=== PATIENT | female | born 1985 | race Caucasian/White ===

== ENCOUNTER → 2023-02-25 22:52 | Emergency (ER) | payer MEDICAID, SELFPAY ==
[2023-02-25 19:30] VITALS: BP 148/89; PULSE 99; RESP 20; TEMP 36.4; O2SAT 100
--- NOTE | 2023-02-25 19:36 | W.ED.GENAD ---
Discharge Plan Disposition Patient Disposition: Admit to [facility] Condition: Serious Discharge Details Clinical Impression: Decreased movement Primary Care Provider: Jacinda,[facility] ED Provider: Christina Fleming Medical Decision Making Patient presents to the emergency department for evaluation of decreased to no movement most of the day today. She states she is 41 weeks has had no care. Recently moved here from [place]. Case is discussed with initially Dr. Meza from OB and then the corrections nurse report and care of patient is transition to the OB unit for further evaluation HPI General Mode of arrival: wheelchair. Date/Time Provider Initiated Documentation: 02/25/23 19:31. Limitations to Documentation: no limitations. Information obtained by: patient. HPI Narrative: This is a 12, 2 living, 41 weeks , denies abdominal pain vaginal discharge. States she has not had any care. States that she has noted all day long to have decreased to no movement. Case is discussed with Dr. Meza from OB and patient will be transported up to the birthing center for further evaluation. Review of Systems All systems reviewed & are unremarkable except as noted in HPI and below PFSH All Active Problems (Updated 02/25/23 @ 19:41 by Christina Fleming, ALEJANDRO) Decreased movement (Acute) Social History Smoking risk assessment performed?: No
[2023-02-25 21:08] LABS: HCT 39.4 % (36.0-46.0); HGB 13.2 g/dL (11.2-15.7); MCH 28.7 pg (27.0-33.0); MCHC 33.5 % (32.0-36.0); MCV 86 fL (80-95); MPV 12.9 fL (8.0-11.0); Platelet Count 140 10^3/uL (130-400); RDW 15.9 % (11.7-14.6); RDW-SD 48.9 fL; WBC 10.19 10^3/uL (4.4-10.8)
[2023-02-25 21:38] VITALS: BP 111/74; PULSE 81
[2023-02-25 21:40] VITALS: PULSE 95
--- NOTE | 2023-02-25 21:44 | W.PM.PROGNOT ---
Date of Service Date of service: 02/25/23 Time of Service: 21:44 Assessment and Plan Assessment and plan (1) : Status: Acute Assessment and plan: A: 37 yo , 40+2 wks by pt's ovulation report No records available, pt states care in [place] [facility] on arrival, resolved by discharge, NST reactive, not in labor, intact membranes POCUS reveals cephalic presentation DAVID, anterior placenta, PHUC 17.4 Pt states she is treating herself herbally for UTI P: Pt declines vaginal exam, GBS screen and Utox screen Pt consents to all other labs to be drawn & urine culture Pt intends to deliver at home, given [facility] and Amanda cards/numbers I encouraged her to consider check ups @ [facility], Given BC tour prior to leaving the unit I will call her with any abnormal lab results (2) Elderly multigravida in third trimester: Status: Acute Assessment and plan: No information available on genetic screening (3) Decreased movement: Status: Acute Assessment and plan: NST reactive Subjective Subjective Interval history since last seen: Pt here for wellness check, reports decreased movement today, is 40 wks , recently relocated to [facility] from [place] with her and family. She is originally from [place] and has been living abroad for 16 yrs, for 10. She reports 2 previous vaginal full term uncomplicated deliveries at home, and has had 4 visits with 2 ultrasounds prior to moving back to the . She intends to deliver at home attended by her . She has not made contact with any local home midwives yet, nor was she aware of the state Medicaid program. Overall she is feeling well, denies bleeding or ROM. Ankles get puffy and uncomfortable but this is positional. Hips are achy, pelvic pressure causes difficulty walking sometimes. She states she is worried if her baby is OK and requests NST as well as POCUS for PHUC and position. She agrees to having lab work done but does not consent to internal examination, induction of labor, or any ongoing plan to receive further maternity care at [facility] for now, though they will consider this option. Exam Narrative Exam Narrative: Normal abdominal exam for full term Size=dates Vital signs are WNL Const General: cooperative, healthy appearing, comfortable, no acute distress, well developed and well groomed Nutritional Appearance: average body habitus and well nourished Orientation: alert, awake and oriented x3 Resp Effort & Inspection: normal respiratory effort and able to speak in complete sentences Cardio Rate: regular rate Rhythm: regular rhythm GI Inspection: normal to inspection Palpation: soft General: deferred (pt declines vaginal exam) Skin General skin exam: no rashes or lesions noted Extrem General: normal to inspection, full ROM and normal gait Psych Appearance: grossly normal and well kempt Mental Status: mental status grossly normal Speech and Movement: speech and movement normal and speech clear Attitude: cooperative Thought Process: normal Thought Content: normal Judgment: judgment good Objective Last Vital Signs Pulse 95 H 02/25/23 21:40 BP 111/74 02/25/23 21:38 Laboratory Results - last 24 hr 02/25/23 02/25/23 19:50 20:56 WBC 10.19 RBC 4.60 Hgb 13.2 Hct 39.4 MCV 86 MCH 28.7 MCHC 33.5 RDW 15.9 H Plt Count 140 MPV 12.9 H Ur Buprenorphine Cancelled Ur Norbuprenorphine Cancelled WW Pocus Exam Exam testing Date/Time of Exam: Date of exam: 02/25/2023 Time of exam: 10:30 pm JUAN Calculator Estimated Delivery Date Method Current WG Current Estimate 02/23/23 LMP (Certain) 40w 2d position Gestational age (weeks): 40 Presentation: Vertex Other Findings: DAVID Other Comments: PHUC 17.4 Time Spent with Patient Time Spent with Patient: >50 minutes Time was spent: preparing to see the patient(eg.review tests), obtaining and/or reviewing separately otained hiistory, ordering medications,tests, procedures, referring, communicating with other health behavioral health care manager, indepentently interpreting results and counseling the patient
[2023-02-25 21:53] VITALS: BP 111/74; PULSE 81; RESP 16; TEMP 36.6; O2SAT 98
[2023-02-25 22:30] LABS: Glucose 97 mg/dL (74-106)
--- NOTE | 2023-02-25 22:31 | W.OBNST ---
Date of service: 02/25/23 Time of Service: 22:31 NST Evaluation Reason for NST Reasons for Nonstress Test: DECREASED MOVEMENT Gestational Age Gestational Age in Weeks and Days: 41 Weeks and 0Days Test and Monitor Explained Test/Monitor Explained: Test Explained, Monitor Explained and Patient Verbalized Understanding Vital Signs Blood Pressure: 111/74 Pulse: 81 Temperature: 97.8 F NST Information Date on Monitor: 02/25/23 Time on Monitor: 19:40 Date off Monitor: 02/25/23 Time off Monitor: 20:41 Total Time on Monitor: 61 NST Interventions: PO Hydration and Meal Given NST Evaluation Patient States Movement: Present FHR Baseline: 120 Variability: Moderate 6-25 bpm Accelerations: 15x15 Decelerations: None NST Results: Reactive Note Ultrasound Done: PHUC (DFM, AMA) Total PHUC: 17.4 Other Pertinent Findings: Heart Rate (131), Presentation (cephalic) and Placental Location (anterior) Coding for PHUC w/NST: Completed Exam and Presentation Coding for Presentation w/NST: Completed Exam. NST Note Note: labs drawn Pt declines IOL, vaginal exam, Utox and GBS screen Encouraged pt to call Tuesday to make a check up appt Given Amanda information to access Medicaid coverage Given tour of center Pt states she plans to deliver at home as she has twice before NST Reviewed and Verified by: Reva Monique
[2023-02-25 22:35] VITALS: BP 111/74; PULSE 81; TEMP 36.6
[2023-02-25 22:39] LABS: Bilirubin Negative (Negative); Blood Negative (Negative); Clarity Clear (Clear); Glucose Negative (Negative); Ketones Negative (Negative); Leukocyte Esterase Small (Negative); Nitrite Negative (Negative); Urobilinogen 0.2 mg/dL (Up to 0.2); pH 6.5 (5-8)
[2023-02-25 22:42] LABS: Bacteria Few HPF (Negative); C & S Indicated? C&S Done As Ordered; Casts Negative LPF (Negative); Crystals Negative HPF (Negative); Epithelial Cells Few HPF (Negative); Mucus Negative (Negative); RBC 0-2 HPF (0-2)
[2023-02-27 12:26] LABS: Chlamydia Result Negative (Negative); GC Result Negative (Negative)
[2023-02-28 10:44] LABS: Hepatitis B Surface Ag Negative (Negative)
[2023-02-28 11:09] LABS: Hepatitis C Ab w Rflx HCV PCR Negative (Negative)
[2023-02-28 11:11] LABS: Varicella IgG Antibody Positive (See Note)
[2023-02-28 11:33] LABS: Rubella IgG Ab (UVM) Positive (See Note)
[2023-02-28 13:17] LABS: HIV-1/2 Ag & Ab Screen Negative (Negative)
[2023-03-01 23:41] LABS: Syphilis IgG w/Reflex Nonreactive (Nonreactive)
== END | disposition other institution (70) ==
LOC: ER 19:41 → BCD 19:43 → OBS 19:44 → BCD 22:53 → OBS 22:53
PROVIDERS: Advanced Practice Midwife; Emergency Provider Nurse Practitioner Acute Care; Visit Provider Nurse Practitioner Acute Care
DX: O36.8190 Decreased fetal movements, unspecified trimester, not applicable or unspecified; O09.523 Supervision of elderly multigravida, third trimester; Z3A.41 41 weeks gestation of pregnancy
CPT/HCPCS: 36415; 80348; 82947; 85027; 86787; 86803; 86850; 86900; 86901; 87340; 87389; 87491; 87591; 99283; 59025; 81003; 81015; 83036; 86762; 86780; 87086; 99282

== ENCOUNTER 2023-03-03 11:16 | Outpatient (CLI) | payer MEDICAID, SELFPAY ==
[2023-03-03 11:23] VITALS: BP 107/69; PULSE 76; TEMP 37
[2023-03-03 11:45] VITALS: BP 107/69; PULSE 76
--- NOTE | 2023-03-03 12:11 | PDOC.NST_ITS ---
Date of service: 03/03/23 Time of Service: 12:11 NST Evaluation Reason for NST Reasons for Nonstress Test: POSTDATES Gestational Age Gestational Age in Weeks and Days: 41 Weeks and 1Days Test and Monitor Explained Test/Monitor Explained: Test Explained, Monitor Explained and Patient Verbalized Understanding Vital Signs Blood Pressure: 107/69 Pulse: 76 Temperature: 98.6 F NST Information Time on Monitor: 11:25 Date off Monitor: 03/03/23 Time off Monitor: 11:49 NST Interventions: PO Hydration Contraction Frequency: 9 minutes apart NST Evaluation Patient States Movement: Present FHR Baseline: 125 Variability: Moderate 6-25 bpm Accelerations: 15x15 Decelerations: None NST Results: Reactive Note Ultrasound Done: N/A (not by this provider, PHUC done by Dr. Gurrola, see separate note). NST Note Note: Enedina presents for NST and PHUC due to post dates. She is new to this area having moved from [place] at [facility] 37 weeks gestation. She came to [facility] last week for NST due to decreased movement. At that time she had been planning an unassisted at home as she had 2 home births in [place], one where software build engineer arrived at baby's head crowned and second was unattended. She feel she would prefer induction here as there have not been signs of labor. NST is reactive and reassuring today. She is able to come tomorrow for induction or Tuesday of next week which would be at 41w5d. We booked her here for 9/29 am. I reviewed methods of IOL such as misoprostol and pitocin and risks and benefits. She agrees to either method. I will communicate with OB Physicians technical solutions engineer about this plan of care as well. BRIDGET NST Reviewed and Verified by: Velvet Cabral
[2023-03-03 12:16] VITALS: BP 107/69; PULSE 76; TEMP 37
--- NOTE | 2023-03-03 13:39 | W.OBNST ---
Date of service: 03/03/23 Time of Service: 11:30 NST Evaluation Reason for NST Reasons for Nonstress Test: POSTDATES Gestational Age Gestational Age in Weeks and Days: 41 Weeks and 1Days Test and Monitor Explained Test/Monitor Explained: Test Explained, Monitor Explained and Patient Verbalized Understanding Vital Signs Blood Pressure: 107/69 Pulse: 76 Temperature: 98.6 F NST Information Date on Monitor: 03/03/23 Time on Monitor: 11:25 Date off Monitor: 03/03/23 Time off Monitor: 11:49 Total Time on Monitor: 24 NST Interventions: PO Hydration Contraction Frequency: 9 minutes apart NST Evaluation Patient States Movement: Present FHR Baseline: 125 Variability: Moderate 6-25 bpm Accelerations: 15x15 Decelerations: None NST Results: Reactive Note Ultrasound Done: PHUC Indication: Other (postdates) Total PHUC: 20.8 Other Pertinent Findings: Presentation (vertex) Coding for PHUC w/NST: Completed Exam. NST Note NST Reviewed and Verified by: Zhanna Gurrola
[2023-03-03 13:40] VITALS: BP 107/69; PULSE 76; TEMP 37
== END 2023-03-03 12:08 | disposition home or self-care (01) ==
LOC: BCD 11:18 → OBS 11:22
PROVIDERS: Visit Provider Advanced Practice Midwife
DX: O48.0 Post-term pregnancy (principal); Z3A.41 41 weeks gestation of pregnancy
CPT/HCPCS: 59025

== ENCOUNTER 2023-03-06 17:05 | Inpatient (IN) | payer MEDICAID, SELFPAY ==
[2023-03-06 17:23] VITALS: TEMP 36.8
[2023-03-06 17:27] LABS: HCT 40.9 % (36.0-46.0); HGB 13.5 g/dL (11.2-15.7); MCH 28.4 pg (27.0-33.0); MCV 86 fL (80-95); MPV 12.6 fL (8.0-11.0); Platelet Count 140 10^3/uL (130-400); RBC 4.75 10^6/uL (3.93-5.22); RDW 16.3 % (11.7-14.6); RDW-SD 50.9 fL; WBC 8.91 10^3/uL (4.4-10.8)
[2023-03-06 18:04] VITALS: BP 114/72; PULSE 84; TEMP 36.8
--- NOTE | 2023-03-06 18:31 | HPE_ITS ---
Date of service: 03/06/23 Time of Service: 18:32 Assessment and Plan Assessment and plan (1) Encounter for induction of labor: Status: Acute Assessment and plan: 1. Enedina sought our care for induction of labor currently at [id number] by LMP/ovulation 2. We have reviewed risks and benefits to induction as well as alternatives such as expectant management. She and her , Chuy, prefer to move forward with induction tonight. 3. We have discussed methods of induction and cervical ripening such as misoprostol, pitocin, ren balloon. She prefers to start with misoprostol and observe for progress. Will give 50 mcg Misoprostol and reassess in 4 hours or as indicated. 4. We talked about IV access, she prefer to wait to have IV placed if it is needed. Agrees to urgent placement. 5. Declines COVID testing today. She reports she is unable to wear a mask due while in labor but has been feeling well. She is aware that people can have COVID and be asymptomatic but does not want testing. 6. She is GBS unknown (unknown for last 2 deliveries as well) prefers to avoid testing, reports she considers herself PCN allergic as her Father had anaphyaxis from PCN and she has had it on her allergy list since then. 7. OB physician part time receptionist notified of patient status and plan of care, physician agrees to plan. (2) Transfusion of blood product declined due to restorationist reason: Status: Acute Assessment and plan: 1. I have reviewed active management of second/third stage of labor. She agrees to IM, PO or IV medications as needed, will not accept blood products for restorationist reasons. Agrees to IV access if needed. BRIDGET (3) Bilateral edema of lower extremity: Status: Acute Assessment and plan: 1.Enedina reports her lower legs are often edematous, on her feet most of the day. Has not had pre-eclampsia in past and she has normal BP and labs although PLT 140 which is stable from a week ago. 2. Negative for hyper reflexes or clonus, denies FARIAS, visual disturbance or epigastric pain.BRIDGET OB-HPI Labor/Delivery History of Present Illness Reason for Visit: Post Term Chief Complaint: Scheduled Induction of Labor Indication for Induction: Post Date. JUAN Calculator Estimated Delivery Date Method Current WG Current Estimate 02/23/23 LMP (Certain) 41w 4d Comments: Enedina and her , Chuy, present for induction of labor. She has been having some contractions today but is prepared to move forward with . They moved here from [place] recently. Has had some care. She did agrees to labs minus GBS testing when she presented a week ago for NST due to decreased movement. Her dating is estimated by ovulation dating. She has not had glucola testing done. Prior to this they delivered 2 healthy children at home while living in [place]. Enedina and Chuy have a plan which is copied for the chart. She prefers minimal intervention. Agrees to IV access if there is indication and active management of any PP bleeding with medications and massage of uterus. She declines blood products based on restorationist preference. They are hoping for skin to skin and delayed cord clamping but understand that health of baby at delivery could interrupt that. Ultimately the safe and healthy delivery is their preference. She and I had talked about induction agents at her last NST and she agrees to begin with misoprostol PO and reassess as indicated. Risks, benefits and alternatives are discussed. Enedina has declined COVID screening. She is feeling well and Chuy is also well. KH History of Present Expected Delivery Route/Plan Chuy Oneal ( third child together) BB- Albert No circ Specific Issues/Plan 1. Late entry to care at 32 weeks in [place] 2. Kidney infection 01/2023, treated by holistic doctor and treated with herbs 3. AMA Informed Consent Informed Consent: Induction of Labor and Risk,Benefits,Alternatives Discussed (patient agrees to Misoprostol or pitocin as indicated. BRIDGET) Review of Systems All systems reviewed & are unremarkable except as noted in HPI and below Genitourinary Comments: lost mucous plug a few days ago PFS All Active Problems (Updated 03/06/23 @ 18:45 by Velvet Cabral CNM) Encounter for induction of labor (Acute) Post term , 41 weeks (Acute) Bilateral edema of lower extremity (Acute) Transfusion of blood product declined due to restorationist reason (Acute) Celiac disease (Acute) (Acute) Elderly multigravida in third trimester (Acute) Decreased movement (Acute) Social History Smoking/Tobacco Use Status: Never Smoking risk assessment performed?: Yes Alcohol Intake: former Substance use type: does not use Housing: apartment History History 12 Para 2 Hx # Term Pregnancies 2 Multiple births Hx # Pregnancies Ectopic pregnancies 0 AB induced Hx Number of Living Children 2 AB spontaneous 9 Past Pregnancies Del. Date GA/Weeks # Preg Succ Route Wgt Sex Labor Lgth Anesth esia Location Prov Complic 01/17/15 vaginal Female 22 09/30/19 40 Yes Female 1.5 hours Delivery Date: 01/17/15 Last Updated by: Velvet Quintanilla CNM Rebeca Delivery Date: 09/30/19 Last Updated by: Velvet Quintanilla CNM Delivered at home due to covid and home or center births not offered. - attended. Radha Meds Allergies and Home Medications Allergies Allergy/AdvReac Type Severity Reaction Status Date / Time aspirin Allergy Verified 03/06/23 18:42 Penicillins Allergy Verified 03/06/23 18:42 Home Medications Medication Instructions Recorded Confirmed Type vitamin no.102-iron 90 1 cap PO DAILY 03/03/23 03/06/23 History mg-folate 1 mg-dha 200 mg capsule Exam Physical Exam Vital signs: Temp 98.2 F 03/06/23 17:23 Narrative: BP 114/72 P 94 Detailed Labor and Delivery Exam Dilation: 1 Effacement (%): 50 station: -3 Position: AARON Cervix position: posterior Consistency: soft Collado Score: Cervical Points Exam 0 1 2 3 Dilation Closed 1-2cm 3-4 cm 5-6cm Effacement 0-30% 40-50% 60-70% 80% Consistency Firm Medium Soft Station -3 -2 -1,0 +1,+2 Position Posterior Mid Anterior COLLADO Score(Cervical Ripeness Score): 4 Amniotic Membrane Status: Intact Monitor Mode: Palpation Contraction Frequency(min): irregular Contraction Duration(sec): irregular Contraction Intensity: Mild Fetus A Assessment Note: Initial NST is reactive and reassuring. KH HEENT Exam HEENT Exam: Normal Neck Exam Neck Exam: Normal Chest/Brest/Axilla Exam Chest Exam: Normal Breast Exam Breast Exam: Not Done Respiratory Exam Respiratory Exam: Normal Cardiovascular Exam Cardiovascular Exam: Normal Abdominal Exam Abdominal Exam: Normal (Size equals dates) Rectal Exam Rectal Exam: Not Done Exam Exam: Normal Extremities Exam Extremities Exam: Abnormal (1-2+ edema of lower legs bilaterally, she reports it is common for her, neg hyper-reflexia) Back/Spine/Pelvis Exam Back Exam: Not Done Pelvis Adequate: Yes Skin Exam Skin Exam: Normal Neurological Exam Neurological Exam: Normal (denies FARIAS, visual changes or epigastric pain) Psychiatric Exam Psychiatric Exam: Normal Results Results Group Beta Strep: Not Done (patient declines) Blood Type: AB+ Lab Results: 03/06/23 Hgb 13.5 Hct 40.9, Plt 140. 9/ random glucose 97, A1c5.0, no 1 hour glucose was done due to scant care, Syphillis NR, GC CT negative, Hep Bneg, Hep C neg, HIV neg, Rubella immune, Varicella immune. Declined GBS testing, no CF/SMA or cfDNA or AFP testing done, POCUS exam 02/25/23 Cephalic presentation,PHUC 17.4, anterior placenta per Reva Monique CNM Abnormal Lab Findings: Abnormal Labs 03/06/23 17:18 RDW 16.3 H MPV 12.6 H Risk Assessment Risk for Shoulder Dystocia Historical/Initial OB: NEGATIVE FOR: Pelvic Abnormality, Pre- BMI>30, Previous Shoulder Dystocia or Previous Macrosomia 36 Weeks: NEGATIVE FOR: Current Gestational DM, EFW>4500gms or Maternal Weight Gain>40lbs 40 Weeks: POSTIVE FOR: Post Dates Delivery Plan @ 40 wks: induction of labor at 41w 4d, increased risk due to post dates and IOL. EFW by erica [id number] Risk for Pre-Eclampsia Date Initiated/Initials: 03/03/23 Yes, if one or more: NEGATIVE FOR: Hx Pre-E/Gest HTN, Chronic HTN, Multiple Gestation, Pre-gestational DM, Renal Disease, Systemic Lupus or APA Syndrome Yes, if 2 or more: POSITIVE FOR: Age>= 35 yrs; NEGATIVE FOR: Nulliparity, >10yr btwn pregnancies, BMI>30, ethinicty, Mother/Sister w/ Pre-E or Previous IUGR Risk for Post- Hemorrhage 36 Weeks: NEGATIVE FOR: Anemia, hgb<10, Low platelets(thrombocytopenia), Gestational HTN or Pre-E, Polyhydraminios or EFW>4500gms 40 Weeks: NEGATIVE FOR: Anemia, hgb<10, Low platelets (thrombocytopenia), Gestation HTN or Pre-E, Polyhydraminios or EFW>4500gms Counseled re: Active Management: Yes Date/Initials: 03/06/23 KH Risks Reviewed Risks Reviewed Upon Admission: Yes (some increased risk for SD and PPH noted)
[2023-03-06] MEDS: miSOPROStol 25 MCG TAB 50 MCG PO (18:55)
[2023-03-07] VITALS (9 sets, daily range): BP systolic 109–120; BP diastolic 55–77; PULSE 74–95; RESP 16; TEMP 37; O2SAT 97
--- NOTE | 2023-03-07 07:57 | W.PM.OBNL1 ---
Date of service: 03/07/23 Time of Service: 07:35 Informed Consent Informed Consent: Induction of Labor and Risk,Benefits,Alternatives Discussed (patient agrees to Misoprostol or pitocin as indicated. ) Pelvic Exam Dilation: 4 Effacement (%): 80 station: -2 Cervix Position: mid Consistency: soft Contractions Monitor Mode: Palpation Contraction Frequency(min): 2-4 Contraction Duration(sec): 45-60 Intensity: Moderate Fetus A Monitor: Doppler Heart Rate Baseline: 138 Amniotic Membrane Status: Intact Assessment and Plan Assessment and plan (1) Encounter for induction of labor: Status: Acute Assessment and plan: 1. Enedina has had one dose of 50 mcg of misoprostol and has started to have regular contractions this morning with good cervical changes. 2. Reviewed option of augmenting with Pitocin IV or expectant management for a couple of hours with reassessment. Enedina prefer expectant management at this time. 3. OB physician updated on patient status. Objective Abnormal lab results 03/06/23 Range/Units 17:18 RDW 16.3 H (11.7-14.6) % MPV 12.6 H (8.0-11.0) fL Temp Pulse BP 98.2 F 74 120/67 03/06/23 17:23 03/07/23 05:33 03/07/23 05:33 Laboratory Results WBC 8.91 10^3/uL (4.4-10.8) 03/06/23 17:18 RBC 4.75 10^6/uL (3.93-5.22) 03/06/23 17:18 Hgb 13.5 g/dL (11.2-15.7) 03/06/23 17:18 Hct 40.9 % (36.0-46.0) 03/06/23 17:18 MCV 86 fL (80-95) 03/06/23 17:18 MCH 28.4 pg (27.0-33.0) 03/06/23 17:18 MCHC 33.0 % (32.0-36.0) 03/06/23 17:18 RDW 16.3 % (11.7-14.6) H 03/06/23 17:18 Plt Count 140 10^3/uL (130-400) 03/06/23 17:18 MPV 12.6 fL (8.0-11.0) H 03/06/23 17:18 COVID-19 Source Cancelled 03/06/23 17:07 SARS-CoV-2 (PCR) Cancelled 03/06/23 17:07 Patient ABO/Rh AB Positive 03/06/23 17:18 Antibody Screen NEGATIVE 03/06/23 17:18 Vital Signs Reviewed: Yes Subjective Interval history since last seen: Enedina has had some sleep and then at 0545 woke with more uncomfortable contractions. Has had some bloody show. Baby has been active. Interventions Pain Management Interventions: Comfort Measures , Ambulation and Birthing Ball. Results Hemoglobin/Hematocrit: Hgb 13.5 g/dL (11.2-15.7) 03/06/23 17:18 Hct 40.9 % (36.0-46.0) 03/06/23 17:18 Abnormal Lab Findings: Abnormal Labs 03/06/23 17:18 RDW 16.3 H MPV 12.6 H
--- NOTE | 2023-03-07 08:35 | HPE_ITS ---
Date of service: 03/07/23 Time of Service: 08:35 OB-HPI Labor/Delivery History of Present Illness Reason for Visit: Post Term Chief Complaint: Scheduled Induction of Labor Indication for Induction: Post Date. JUAN Calculator Estimated Delivery Date Method Current WG Current Estimate 02/23/23 LMP (Certain) 41w 5d Comments: purpose of this is to update obstetric history only. KH History of Present Expected Delivery Route/Plan Chuy Oneal ( third child together) CHRISTIE [place] circ Specific Issues/Plan 1. Late entry to care at 32 weeks in [place] 2. Kidney infection 01/2023, treated by holistic doctor and treated with herbs 3. AMA PFSH All Active Problems (Updated 03/06/23 @ 18:45 by Velvet Cabral CNM) Encounter for induction of labor (Acute) Post term , 41 weeks (Acute) Bilateral edema of lower extremity (Acute) Transfusion of blood product declined due to anabaptist reason (Acute) Celiac disease (Acute) (Acute) Elderly multigravida in third trimester (Acute) Decreased movement (Acute) Social History Smoking/Tobacco Use Status: Never Smoking risk assessment performed?: Yes Alcohol Intake: former Substance use type: does not use Housing: apartment History History 12 Para 2 Hx # Term Pregnancies 2 Multiple births Hx # Pregnancies Ectopic pregnancies 0 AB induced Hx Number of Living Children 2 AB spontaneous 9 Past Pregnancies Del. Date GA/Weeks # Preg Succ Route Wgt Sex Labor Lgth Anesth esia Location Prov [facility] 01/17/15 43 No Yes vaginal 7 lb 3 oz Female 22 03/25/16 18 No No vaginal 08/11/16 4 03/09/17 4 No No 03/06/18 4 No No 07/07/18 4 09/03/18 09/30/19 40 No Yes vaginal 7 lb 12 oz Female 1.5 hours 06/06/20 6 No No 09/16/21 10 No No 03/06/22 8 No No Delivery Date: 01/17/15 Last Updated by: Velvet Cabral CNM Rebec[place], home Delivery Date: 03/25/16 Last Updated by: Velvet Cabral CNM delivered at home unattended Delivery Date: 08/11/16 Last Updated by: Velvet Cabral CNM early SAB, uncertain of date. no complications Delivery Date: 03/09/17 Last Updated by: Velvet Cabarl CNM SAB, uncertain of dates, no complications Delivery Date: 03/06/18 Last Updated by: LEXA Perez uncomplicated Delivery Date: 07/07/18 Last Updated by: Velvet Cabral CNM Uncertain of date, SAB uncomplicated Delivery Date: 09/03/18 Last Updated by: LEXA Perez uncomplicated Delivery Date: 09/30/19 Last Updated by: Velvet Quintanilla CNM Delivered at home due to covid and home or center births not offered. - attended. Radha Delivery Date: 06/06/20 Last Updated by: LEXA Perez uncomplicated Delivery Date: 09/16/21 Last Updated by: LEXA Perez uncomplicated Delivery Date: 03/06/22 Last Updated by: LEXA Perez uncomplicated Meds Allergies and Home Medications Allergies Allergy/AdvReac Type Severity Reaction Status Date / Time aspirin Allergy Verified 03/06/23 18:42 Penicillins Allergy Verified 03/06/23 18:42 Home Medications Medication Instructions Recorded Confirmed Type vitamin no.102-iron 90 1 cap PO DAILY 03/03/23 03/06/23 History mg-folate 1 mg-dha 200 mg capsule Exam Physical Exam Vital signs: Temp Pulse BP 98.2 F 74 120/67 03/06/23 17:23 03/07/23 05:33 03/07/23 05:33 Detailed Labor and Delivery Exam Naranjo Score: Cervical Points Exam 0 1 2 3 Dilation Closed 1-2cm 3-4 cm 5-6cm Effacement 0-30% 40-50% 60-70% 80% Consistency Firm Medium Soft Station -3 -2 -1,0 +1,+2 Position Posterior Mid Anterior Results Results Group Beta Strep: Not Done Blood Type: AB+ Rubella Status: Immune Varicella Immunity: Immune Abnormal Lab Findings: Abnormal Labs 03/06/23 17:18 RDW 16.3 H MPV 12.6 H Risk Assessment Risk for Shoulder Dystocia Historical/Initial OB: NEGATIVE FOR: Pelvic Abnormality, Pre- BMI>30, Previous Shoulder Dystocia or Previous Macrosomia 36 Weeks: NEGATIVE FOR: Current Gestational DM, EFW>4500gms or Maternal Weight Gain>40lbs 40 Weeks: POSTIVE FOR: Post Dates Delivery Plan @ 40 wks: induction of labor at 41w 4d, increased risk due to post dates and IOL. EFW by erica [id number] Risk for Pre-Eclampsia Date Initiated/Initials: 03/03/23 Yes, if one or more: NEGATIVE FOR: Hx Pre-E/Gest HTN, Chronic HTN, Multiple Gestation, Pre-gestational DM, Renal Disease, Systemic Lupus or APA Syndrome Yes, if 2 or more: POSITIVE FOR: Age>= 35 yrs; NEGATIVE FOR: Nulliparity, >10yr btwn pregnancies, BMI>30, ethinicty, Mother/Sister w/ Pre-E or Previous IUGR Risk for Post- Hemorrhage 36 Weeks: NEGATIVE FOR: Anemia, hgb<10, Low platelets(thrombocytopenia), Gestational HTN or Pre-E, Polyhydraminios or EFW>4500gms 40 Weeks: NEGATIVE FOR: Anemia, hgb<10, Low platelets (thrombocytopenia), Gestation HTN or Pre-E, Polyhydraminios or EFW>4500gms Counseled re: Active Management: Yes Date/Initials: 03/06/23 BRIDGET Risks Reviewed Risks Reviewed Upon Admission: Yes
[2023-03-07] MEDS: Oxytocin 10 UNITS/ML VIAL IM (13:40)
--- NOTE | 2023-03-07 13:43 | OBVDS_ITS ---
Date of service: 03/07/23 Time of Service: 13:43 OB Labor/ Delivery Information Baby A Delivery Note: Eendina presented with her , Chuy, for induction of labor for post term at 41w 4d. She had a single dose of Misoprostol 50 mcg PO and, with expectant management, she progressed slowly over the night of 03/06 into 03/07. In the morning of 03/07 VE was 4cm and FHR tracing and doppler were all WNL. She labored more actively after that and at 1230 began to have regular involuntary urges to push. She entered the tup a little before that time. Second stage huddle was done and it was agreed that would be as quiet as possible and pitocin would be given IM after placenta delivered. Chuy entered the tub as well to receive his baby with Customer Success Manager at side of tub prepared to assist. Enedina gently pushed and had SROM at 1245. The baby was born and brought to Mother's abdomen by Chuy at 1252. They remained in the tub, hoping to deliver the placenta in same fashion. Their desire was to allow that placenta to remain attached to baby for a period of time after delivery. Baby apgars were 9 and 9. Placenta delivered with maternal pushing effort at 1323 and appears intact. Enedina moved to the bed and her fundus was firm, U-1 with massage. We admi nistered 10 units of Pitocin IM. Perineum inspected and there is an abrasion at introitus that is hemostatic and left unrepaired. Bi-manual massage to verify that lower uterine segment was firm and that there was no clots or placental fragments palpable in cervix. No free flow noted. QBL is challenged by being in tub for and placenta but estimated at 300cc. They do not want circumcision for their son. Enedina and Chuy plan to breast feed their son. Expect 24 hour PP stay. Mother and baby are in satisfactory condition. Cord blood not obtained due to placenta remaining attached to baby and per parents desire to avoid testing. Expect normal PP course. Providers Doctor: Velvet Cabral Gal[place] Hand: Robin Ronquillo Nurse: Marilee Almeida Other: Ofe Hines Labor/Delivery Information Number of Babies in Womb: 1 Steroids Given: None Reason Steroids Not Administered: N/A Group Beta Strep: Not Done Antibiotics Administered: No Rubella Status: Immune Blood Type: AB+ Varicella Immunity: Immune Maternal Complications: None Shoulder Dystocia: No Stages of Labor Onset of Labor Date: 03/06/23 Onset of Labor Time: 10:00 Complete Dilatation Date: 03/07/23 Complete Dilatation Time: 12:30 Labor - Stage 1 Duration: 26 hours and 30 minutes ROM Baby A: 03/07/23 ROM Baby A: 12:45 ROM Total Time- Baby A: [id number] Infant Delivery Date-Baby A: 03/07/23 Infant Delivery Time-Baby A: 12:52 Labor Stage 2 Duration: 22 minutes Placenta Delivery Date-Baby A: 03/07/23 Placenta Delivery Time-Baby A: 13:23 Labor-Stage 3 Duration: 31 minutes Total Length of Labor-Baby A: 26 hours and 52 minutes Placenta Cultured: No Placenta Status: Delivered Baby A Infant Gender: Male Gestational Status: Term (39-41.6 wks) Gestational Age in Weeks/Days: 41 Weeks and 5 Days Score-1 Minute Interval(Baby A) Heart Rate-1 minute: 100 BPM or Greater Respiratory Effort- 1 minute: Spontaneous/Strong Cry Muscle Tone-1 minute: Active Movement Reflex Response-1 minute: Prompt Response Color-1 minute: Bluish Hands or Feet Total Score-1 minute: 9 Score-5 Minute Interval(Baby A) Heart Rate- 5 minute: 100 BPM or Greater Respiratory Effort-5 minute: Spontaneous/Strong Cry Muscle Tone-5 minute: Active Movement Reflex Response-5 minute: Prompt Response Color-5 minute: Bluish Hands or Feet Total Score- 5 minute: 9
--- NOTE | 2023-03-07 19:58 | DSE_ITS ---
Date of service: 03/07/23 Time of Service: 19:58 DS: Diagnosis Discharge Diagnosis (1) care following vaginal delivery: Status: Acute Asessment and Plan: 1. Patient prefers discharge to home this evening, <24 hours after delivery but > 6 hours PP 2. Stable PP condition, experienced parents, experienced breast feeding Mother 3. PP course has been uneventful to date 4. Will encourage follow up in 2 weeks and 6 weeks at [facility] or prn 5. Natural Family Planning for contraception. Discharge Plan Disposition Patient Disposition: Home Condition: Good Discharge Details Reason For Visit: Post Term Admit Date/Time: 03/06/23 17:05 Admit Provider: Velvet Cabral Attending Provider: Velvet Cabral Hospital Course Hospital Course: Induction of labor for post 41 week with a single dose of misoprostol 50 mcg PO resulting in labor and of live male. Desired discharge 7-8 hours PP. In stable condition. Experienced breast feeding Mother. Home Meds and New Rx's Prescriptions: Continued PNV 335-ecaf-lgasnh-dha 90 mg iron- 1 mg-200 mg capsule 1 cap PO DAILY Discharge Instructions Instructions: Depression (GEN) Stand Alone Forms: Instructions, Post Vaginal Deliver Activity:: Activity as Tolerated Equipment/Supplies:: No Equipment Needed Diet:: As Tolerated Discharge Orders Discharge Orders: Discharge Order (Routine); Ordered 03/07/23 Ordered By: Velvet Cabral OB:DS Summary Summary Vaginal Delivery Method: Spontaneaous Episiotomy Description: None Laceration Description: None Laceration Extension: N/A Contraception Discussed Contraception Discussed: Yes (NFP), [place] Infant Gender-Baby A: Male weight: 9 lb 8.913 oz Status at Discharge Functional status at discharge: independent ambulation Overall status at discharge: patient is back to baseline Mental Status: mental status grossly normal Speech and Movement: speech and movement normal Mood: congruent mood Affect: normal affect Time Spent with Patient providing and/or coordinating discharge services: Less than 30 minutes Exam Physical Exam Vital signs: Temp Pulse Resp BP Pulse Ox 98.6 F 95 H 16 109/56 L 97 03/07/23 14:19 03/07/23 15:10 03/07/23 14:19 03/07/23 15:10 03/07/23 14:19 Vital Signs Reviewed: Yes Constitutional Constitutional: no acute distress, average body habitus and cooperative HEENT Exam HEENT Exam: Normal Neck Exam Neck Exam: Normal (normal visual inspection) Respiratory Exam Respiratory Exam: Normal Cardiovascular Exam Cardiovascular Exam: Normal Abdominal Exam Abdomen: Other (normal exam) Fundal Exam Fundus: Below Umbilicus and Firm Comment: small lochia noted. KH Rectal Exam Rectal Exam: Not Done Exam Perineum: Intact and Normal Extremities Exam Extremity Exam: Normal (denies calf tenderness), Edema, Full ROM, Normal Capillary Refill and Warm to Touch Back/Spine/Pelvis Exam Back Exam: Normal Skin Exam Skin Exam: Normal Neurological Exam Neurological Exam: Normal Psychiatric Exam Psychiatric Exam: Normal PFSH All Active Problems care following vaginal delivery (Acute) Encounter for induction of labor (Acute) Post term , 41 weeks (Acute) Bilateral edema of lower extremity (Acute) Transfusion of blood product declined due to quaker reason (Acute) Celiac disease (Acute) (Acute) Elderly multigravida in third trimester (Acute) Decreased movement (Acute) Social History Smoking/Tobacco Use Status: Never Smoking risk assessment performed?: Yes Alcohol Intake: former Substance use type: does not use Housing: apartment History History 12 Para 2 Hx # Term Pregnancies 2 Multiple births Hx # Pregnancies Ectopic pregnancies 0 AB induced Hx Number of Living Children 2 AB spontaneous 9 Past Pregnancies Del. Date GA/Weeks # Preg Succ Route Wgt Sex Labor Lgth Anesth esia Location Prov Complic 01/17/15 43 No Yes vaginal 7 lb 3 oz Female 22 03/25/16 18 No No vaginal 08/11/16 4 03/09/17 4 No No 03/06/18 4 No No 07/07/18 4 09/03/18 09/30/19 40 No Yes vaginal 7 lb 12 oz Female 1.5 hours 06/06/20 6 No No 09/16/21 10 No No 03/06/22 8 No No Delivery Date: 01/17/15 Last Updated by: Velvet Cabral CNM [place]bec[place], [place] Delivery Date: 03/25/16 Last Updated by: Velvet Cabral CNM delivered at home unattended Delivery Date: 08/11/16 Last Updated by: Velvet Cabral CNM early SAB, uncertain of date. no complications Delivery Date: 03/09/17 Last Updated by: Velvet Cabral CNM SAB, uncertain of dates, no complications Delivery Date: 03/06/18 Last Updated by: Velvet Cabral CNM SAB uncomplicated Delivery Date: 07/07/18 Last Updated by: Velvet Cabral CNM Uncertain of date, SAB uncomplicated Delivery Date: 09/03/18 Last Updated by: Velvet Cabral CNM SAB uncomplicated Delivery Date: 09/30/19 Last Updated by: Velvet Quintanilla CNM Delivered at home due to covid and home or center births not offered. - attended. Radha Delivery Date: 06/06/20 Last Updated by: Velvet Cabral CNM SAB uncomplicated Delivery Date: 09/16/21 Last Updated by: Velvet Cabral CNM SAB uncomplicated Delivery Date: 03/06/22 Last Updated by: Velvet Cabral CNM SAB uncomplicated DS: Data Vitals/I&O Vitals and I&O: Vital Signs Temperature 98.6 F 03/07/23 14:19 Temperature 98.2 F 03/06/23 18:04 Temperature Source Oral 03/07/23 14:19 Pulse 95 H 03/07/23 15:10 Pulse 84 03/06/23 18:04 Pulse Rhythm Regular 03/07/23 09:53 Respiratory Rate 16 03/07/23 14:19 Blood Pressure 109/56 L 03/07/23 15:10 Blood Pressure 114/72 03/06/23 18:04 Pulse Oximetry 97 03/07/23 14:19 Oxygen Delivery Method Room Air 03/06/23 17:23 Oxygen Flow Rate 0 03/06/23 17:23 Pain Level 3 03/06/23 17:23 Comment Pt declined Vital Signs at this time. 03/06/23 19:40 Intake & Output 03/06/23 03/07/23 03/07/23 23:59 11:59 23:59 Intake Total 240 / 240 Output Total 150 / 150 175 / 175 Balance -150 / -150 65 / 65 Weight 190 lb Intake: Oral 240 / 240 Output: Urine 150 / 150 175 / 175 Other: Urine Color Light Raquel
== END 2023-03-07 21:20 | disposition home or self-care (01) | DRG 807 ==
LOC: OBS 17:17
PROVIDERS: Admitting Provider Advanced Practice Midwife; Visit Provider Advanced Practice Midwife
DX: O48.0 Post-term pregnancy (principal); Z37.0 Single live birth; O12.04 Gestational edema, complicating childbirth; Z3A.41 41 weeks gestation of pregnancy; K90.0 Celiac disease; O99.62 Diseases of the digestive system complicating childbirth
CPT/HCPCS: 85027; 86850; 86900; 86901; 87635; 59025; J2590; J3490

== ENCOUNTER 2024-01-25 06:15 | Emergency (ER) | payer MEDICAID, SELFPAY ==
[2024-01-25 06:20] VITALS: BP 126/75; PULSE 88; RESP 20; TEMP 37.2; O2SAT 99
[2024-01-25 06:26] VITALS: RESP 18
--- NOTE | 2024-01-25 06:45 | RT.EKG_ITS ---
APPROVED REPORT Exam: Resting ECG Reason for Exam: chest pain Patient Location: E HR:71 bpm ECG Measurements Heart Rate 71 AXIS WA 150 P 14 QRSd 93 QRS 15 QT 407 T 23 QTc 443 Conclusion Sinus rhythm...normal P axis, V-rate 60- 99 ST elev, probable normal early repol pattern...ST elevation, age<55 Physician: no stemi, inverted t wave in III, no q wave, no braod terminal s wave in lead I
--- NOTE | 2024-01-25 07:09 | ED.GENADUL_ITS ---
Discharge Plan Disposition Patient Disposition: Home Condition: Good Discharge Details Chief Complaint: Vascular Clinical Impression: Superficial thrombophlebitis Primary Care Provider: Unknown,Unknown ED Provider: Robin Calderon Home Meds and New Rx's Prescriptions: No Action cyanocobalamin (vitamin B-12) 1,000 mcg capsule 2,000 mcg PO DAILY PNV [id number] 90 mg iron- 1 mg-200 mg capsule 1 cap PO DAILY Discharge Instructions Instructions: Phlebitis (DC) Additional Instructions: At this time you have evidence of a superficial blood clot. It is not at a stage that requires antibiotics or anticoagulants currently. Please use your compression stockings, please apply warm compresses throughout the day to help it resolve. You will require repeat ultrasonography for further testing. Additionally I have placed a referral with our obstetrics software development leader for further outpatient testing and management. They will also help manage and coordinate your current as needed. As we discussed together you have elected to hold off on any imaging or anticoagulation. There is a small but present risk that there could be a clot in your lung, which does carry inherent negative potential. If your symptoms change in any way, or worsen in any way, please do not hesitate to return for reassessment so that we can continue to try to make the best decision for you that aligns with your goals, and health and wellness. If you notice any worsening of your symptoms, or any new symptoms such as vomiting, diarrhea, fever, chills, shortness of breath, chest pain, numbness, weakness, or fainting , please return immediately to the emergency department for reevaluation. Please follow up with your primary care provider as soon as possible for reassessment and reevaluation. As always, it was a pleasure participating in your medical care today. Referrals: Zhanna Gurrola MD [ [facility] STAFF PHYSICIAN] - Kitty Meza DO [OSTEOPATHIC DOCTOR] - Robyn Mahajan MD [ [facility] STAFF PHYSICIAN] - [facility] General Date/Time Provider Initiated Documentation: 01/25/24 06:35 . [facility] Narrative: This is a 38-year-old female with past medical history of multiple pregnancies who is a currently at this time at around 10 weeks, who presents today with right lower leg pain for the last 48 hours. In addition to this she admits to slight mild chest discomfort which she describes as a mild congestion like sensation. No significant pleuritic chest pain. She denies any cough, fever, chills or hemoptysis. Patient has had superficial thrombophlebitis in the past, but has never required anticoagulant use. She has had multiple miscarriages but she states she has not been tested for MTHFR. She denies any recent long trips surgeries or procedures. No other complaints at th is time. No other modifying factors. Related Data Home Medications ?Medication ?Instructions ?Recorded ?Confirmed vitamin no.102-iron 90 1 cap PO DAILY 03/03/23 01/25/24 mg-folate 1 mg-dha 200 mg capsule cyanocobalamin (vitamin B-12) 2,000 mcg PO DAILY 04/19/23 01/25/24 1,000 mcg capsule Allergies Allergy/AdvReac Type Severity Reaction Status Date / Time aspirin Allergy shortness Verified 01/25/24 06:33 of breath Penicillins Allergy rash Verified 01/25/24 06:33 General Stated Complaint: Vascular CLARISSA: 3 Review of Systems All systems reviewed & are unremarkable except as noted in HPI and below Exam Narrative Exam Narrative: 1.Const: Well-nourished, Well-developed, appearing stated age 2.Eyes: PERRL, no conjunctival injection, and symmetrical lids. 3.ENT: Atraumatic external nose and ears. Moist MM. Neck: Symmetric, trachea midline, No thyromegaly. 4.CVS: +S1/S2, No murmurs or gallops. Peripheral pulses 2+ and equal in all extremities. Brisk capillary refill in all extremities. 5.RESP: Unlabored respiratory effort. Clear to auscultation bilaterally. No wheezes rales or rhonchi 6.GI: Soft, Nontender/Nondistended, No hepatosplenomegaly. No guarding or rebound. 7.MSK: Normocephalic/Atraumatic, Extremities w/o deformity. No cyanosis or clubbing, Normal movement of all extremities. Patient demonstrates evidence of erythema in the right calf, minimal swelling there. Trace pitting edema of the right lower extremity. 8.Skin: Warm, Dry. No rashes or lesions. 9.Neuro: slitting machine operator II-XII grossly intact. Sensation grossly intact, no focal neurologic deficits. 10.Psych: (AAO) x3. Appropriate mood and affect Course Vital Signs Vital signs: Vital Signs Temperature 37.2 C 01/25/24 06:20 Pulse 88 01/25/24 06:20 Respiratory Rate 20 01/25/24 06:20 Blood Pressure 126/75 01/25/24 06:20 Pulse Oximetry 99 01/25/24 06:20 Temperature 37.2 C 01/25/24 06:20 Temperature Source Skin 01/25/24 06:20 Pulse 88 01/25/24 06:20 Respiratory Rate 18 01/25/24 06:26 Respiratory Effort Normal, Non-Labored 01/25/24 06:26 Respiratory Depth Normal 01/25/24 06:26 Respiratory Pattern Normal 01/25/24 06:26 Blood Pressure 126/75 01/25/24 06:20 Pulse Oximetry 99 01/25/24 06:20 Oxygen Delivery Method Room Air 01/25/24 06:20 Oxygen Flow Rate 0 01/25/24 06:20 Pain Level 2 01/25/24 06:26 Medical Decision Making This is a 38-year-old female with past medical history of multiple pregnancies who is a currently at this time at around 10 weeks, who presents today with right lower leg pain for the last 48 hours. In addition to this she admits to slight mild chest discomfort which she describes as a mild congestion like sensation. No significant pleuritic chest pain. She denies any cough, fever, chills or hemoptysis. Patient has had superficial t hrombophlebitis in the past, but has never required anticoagulant use. She has had multiple miscarriages but she states she has not been tested for MTHFR. She denies any recent long trips surgeries or procedures. No other complaints at this time. No other modifying factors. Patient has been wearing compression stockings for her right lower calf. Physical exam demonstrates well-appearing female, she has no tachycardia, hypotension, fever or hypoxemia. Differential is highest for superficial thrombophlebitis, less likely DVT. However with the patient's atypical chest sensation, PE is on the differential albeit less likely. I had a long discussion with the patient regarding potential diagnoses and symptoms. She states very clearly that she does not want any radiation for the baby/fetus at this time. We will get blood work to evaluate for hemoglobin and platelet and coagulopathy status. We will get a D-dimer to evaluate likelihood of potential significant clot considering her stage in . We will get formal ultrasound of the right lower extremity. Patient will be signed out to my colleague Dr. Toya Bello for follow-up on ultrasonography. 8:38 AM Ultrasound shows evidence of a superficial DVT. No indication for anticoagulation in regards to that. Will recommend continue compression stockings, warm compresses, repeat ultrasound in the next 2 to 4 weeks, and close follow-up with obstetrics. We have placed her on the referral list. Blood work shows stable hemoglobin, normal renal function. Patient's D-dimer is elevated at 1697. This is above the cutoff for this stage of . I had a very long discussion with the patient regarding her symptoms. She states the chest pain is absolutely minimal, and feels more like mild congestion. She is currently in the organogenesis stage of her , and we discussed the risks and benefits of ionizing radiation, we also discussed the likelihood ratios of a potential PE with her symptoms, her lack of tachycardia hypotension or concerning EKG findings. We discussed benefits of anticoagulation presumptively, as well as the risks. And after a very long discussion weighing all the risks and benefits including the best case scenarios as well as worst- case scenarios of life or compromise, patient has elected to hold off on any radiographic imaging at this time. Additionally for the time being she would like to hold off on any anticoagulation as well. I did discuss very clearly with her that if this scenario changes, or her symptoms change that we can pivot and transition to potential anticoagulants or imaging, however this does come with the risk of delayed assessment and potential harm. Patient and family understand this. Because of the patient's more complex medical nature, her multiple miscarriages, I do feel that she is at high risk for potential coagulopathy, or potential MTHFR. Because of this I have requested that a referral to the obstetrics software development leader be placed for further testing and management. Additionally the patient will require repeat ultrasonography in the next few weeks to make sure the blood clot is not transitioning. We will give her compression stockings from use. Discussed red flags for which to return. I have extensively reviewed the treatment plan and discharge instructions with the patient. I have addressed all patient concerns at this time. The patient was made aware of what symptoms to monitor for that would warrant a return to the emergency department. Discussed the plan with the patient, they demonstrate verbal understanding and agreement with our assessment and plan at this time. The documentation in this chart was dictated using [employer] dictation software. Please excuse any dictation errors. Quality:SDOH Health Related Social Needs: No Data to Display PFSH All Active Problems (Updated 01/25/24 @ 08:44 by Robin Calderon DO) Superficial thrombophlebitis (Acute) Pelvic floor dysfunction in female (Acute) care following vaginal delivery (Acute) Post term , 41 weeks (Acute) Bilateral edema of lower extremity (Acute) Transfusion of blood product declined due to judaism reason (Acute) Celiac disease (Acute) (Acute) Elderly multigravida in third trimester (Acute) Social History Smoking/Tobacco Use Status: Never Smoking risk assessment performed?: Yes Alcohol Intake: former Substance use type: does not use Housing: apartment History History 12 Para 3 Hx # Term Pregnancies 3 Multiple births Hx # Pregnancies Ectopic pregnancies 0 AB induced Hx Number of Living Children 3 AB spontaneous 9 Past Pregnancies Del. Date GA/Weeks # Preg Succ Route Wgt Sex Labor Lgth Anesth esia Location Prov Complic 01/17/15 43 No Yes vaginal 3260.195 g Female 22 03/25/16 18 No No vaginal 08/11/16 4 03/09/17 4 No No 03/06/18 4 No No 07/07/18 4 09/03/18 09/30/19 40 No Yes vaginal 3515.341 g Female 1.5 hours 06/06/20 6 No No 09/16/21 10 No No 03/06/22 8 No No 03/07/23 41 No Yes vaginal 4334.642 g Male 26hrs 52min LEXA Nolasco Delivery Date: 01/17/15 Last Updated by: Velvet Cabral CNM Rebeca, home Delivery Date: 03/25/16 Last Updated by: Velvet Cabral CNM delivered at home unattended Delivery Date: 08/11/16 Last Updated by: Velvet Cabral CNM early SAB, uncertain of date. no complications Delivery Date: 03/09/17 Last Updated by: Velvet Cabral CNM SAB, uncertain of dates, no complications Delivery Date: 03/06/18 Last Updated by: Velvet Cabral CNM SAB uncomplicated Delivery Date: 07/07/18 Last Updated by: Velvet Cabral CNM Uncertain of date, SAB uncomplicated Delivery Date: 09/03/18 Last Updated by: Velvet Cabral CNM SAB uncomplicated Delivery Date: 09/30/19 Last Updated by: Velvet Quintanilla CNM Delivered at home due to covid and home or center births not offered. - attended. Radha Delivery Date: 06/06/20 Last Updated by: Velvet Cabral CNM SAB uncomplicated Delivery Date: 09/16/21 Last Updated by: Velvet Cabral CNM SAB uncomplicated Delivery Date: 03/06/22 Last Updated by: Velvet Cabral CNM SAB uncomplicated Delivery Date: 03/07/23 Last Updated by: Kitty Harris LPN Induced-post dates; established care into practice at 41 +
[2024-01-25 07:34] LABS: Abs Immature Grans 0.04 10^3/uL (0.0-0.06); Absolute Basophil Count 0.03 10^3/uL (0.0-0.2); Absolute Eosinophil Count 0.23 10^3/uL (0.0-0.7); Absolute Lymphocyte Count 1.92 10^3/uL (1.2-3.4); Absolute Monocyte Count 0.79 10^3/uL (0.1-0.8); Absolute Neutrophil Count 4.62 10^3/uL (1.2-6.7); Basophils % 0.4 %; HCT 43.6 % (36.0-46.0); HGB 14.8 g/dL (11.2-15.7); Immature Grans % 0.5 %; Lymphocytes % 25.2 %; MCHC 33.9 % (32.0-36.0); MCV 88 fL (80-95); MPV 11.6 fL (8.0-11.0); Monocytes % 10.4 %; Neutrophils % 60.5 %; Platelet Count 147 10^3/uL (130-400); RBC 4.94 10^6/uL (3.93-5.22); RDW 13.4 % (11.7-14.6); RDW-SD 43.2 fL; WBC 7.63 10^3/uL (4.4-10.8)
[2024-01-25 07:42] LABS: ALT 16 U/L (14-59); AST 11 U/L (15-37); Albumin 3.1 g/dL (3.4-5.0); Alkaline Phosphatase 43 U/L (46-116); Anion Gap 7.7 mmol/L (3-11); BUN 11 mg/dL (7-18); Bilirubin, Total 0.74 mg/dL (0.2-1.0); CO2 23.3 mmol/L (21.0-32.0); CREATININE 0.5 mg/dL (0.55-1.02); Chloride 107 mmol/L (98-107); Estimated GFR 121.52 (mL/min/1.73m2); Glucose 86 mg/dL (74-106); PTT Activated 25.8 sec (23.6-32.8); Potassium 3.8 mmol/L (3.5-5.1); Prothrombin Time 9.6 sec (9.1-11.1); Sodium 138 mmol/L (136-145); Total Protein 6.6 g/dL (6.4-8.2)
--- NOTE | 2024-01-25 08:00 | DI.US_ITS ---
Exam(s) US LOWER EXTREMITY VENOUS RT EXAM: US LOWER EXTREMITY VENOUS RT CLINICAL HISTORY: right calf pain, eval for clot. TECHNIQUE: Lower extremity venous ultrasound performed using grayscale, color-flow, and spectral Do ppler analysis. COMPARISON: No exams were available for comparison FINDINGS: The common femoral, femoral and popliteal veins demonstrate normal compressibility, augmentation, and color Doppler. The posterior tibial veins are patent. There is thrombus within a superficial vein i n the posterior calf. No hematoma or Almeida's cyst is seen. IMPRESSION: Superficial venous thrombosis in the posterior calf. No evidence of DVT. DATA REPOSITORY:
[2024-01-25 08:06] LABS: D-Dimer 1697 ng/mlFEU (<500)
[2024-01-25 09:04] VITALS: BP 112/62; PULSE 84; RESP 12; O2SAT 97
--- NOTE | 2024-01-25 14:49 | NUR.NOTE ---
Referral faxed to [facility] for , blood clot, needs further coagulation testing; in 1 week. Nursing Note:
== END 2024-01-25 09:06 | disposition home or self-care (01) ==
PROVIDERS: Emergency Provider Student in an Organized Health Care Education/Training Program
DX: R07.9 Chest pain, unspecified (principal); R06.02 Shortness of breath; I80.01 Phlebitis and thrombophlebitis of superficial vessels of right lower extremity; O22.21 Superficial thrombophlebitis in pregnancy, first trimester
CPT/HCPCS: 36415; 80053; 93005; 99283; 85025; 85379; 85610; 85730; 93010; 93971

== ENCOUNTER 2024-02-08 02:39 | Outpatient (CLI) | payer MEDICAID, SELFPAY ==
[2024-02-08 12:58] LABS: Abs Immature Grans 0.04 10^3/uL (0.0-0.06); Absolute Basophil Count 0.04 10^3/uL (0.0-0.2); Absolute Eosinophil Count 0.38 10^3/uL (0.0-0.7); Absolute Lymphocyte Count 2.08 10^3/uL (1.2-3.4); Absolute Monocyte Count 0.67 10^3/uL (0.1-0.8); Absolute Neutrophil Count 5.26 10^3/uL (1.2-6.7); Basophils % 0.5 %; Eosinophils % 4.5 %; HGB 15.1 g/dL (11.2-15.7); Immature Grans % 0.5 %; Lymphocytes % 24.6 %; MCH 29.9 pg (27.0-33.0); MCHC 34.3 % (32.0-36.0); MCV 87 fL (80-95); Monocytes % 7.9 %; Platelet Count 196 10^3/uL (130-400); RBC 5.05 10^6/uL (3.93-5.22); RDW 13.4 % (11.7-14.6); RDW-SD 42.8 fL; WBC 8.47 10^3/uL (4.4-10.8)
[2024-02-08 13:06] LABS: Hemoglobin A1C 4.9 % (<5.7)
[2024-02-08 13:41] LABS: ALT 18 U/L (14-59); AST 14 U/L (15-37); Albumin 3.2 g/dL (3.4-5.0); Alkaline Phosphatase 42 U/L (46-116); Anion Gap 8.9 mmol/L (3-11); BUN 13 mg/dL (7-18); CO2 25.1 mmol/L (21.0-32.0); CREATININE 0.6 mg/dL (0.55-1.02); Calcium 9.4 mg/dL (8.5-10.1); Chloride 103 mmol/L (98-107); Glucose 85 mg/dL (74-106); Magnesium 1.8 mg/dL (1.8-2.4); Potassium 3.7 mmol/L (3.5-5.1); Sodium 137 mmol/L (136-145); TSH (W/Ref FT4) < 0.01 uIU/mL (0.36-3.74)
[2024-02-08 14:31] LABS: FREE T4 1.44 ng/dL (0.76-1.46)
[2024-02-08 23:28] LABS: Parathyroid Hormone,Intact 15 pg/mL (19-88)
[2024-02-09 08:41] LABS: Hepatitis B Surface Ag Negative (Negative)
[2024-02-09 09:28] LABS: Hepatitis C Ab w Rflx HCV PCR Negative (Negative)
[2024-02-09 10:48] LABS: Factor 5 Assay 131 % (62-139)
[2024-02-09 11:28] LABS: Varicella IgG Antibody Positive (See Note)
[2024-02-09 11:32] LABS: Rubella IgG Ab (UVM) Positive (See Note)
[2024-02-10 12:13] LABS: HIV-1/2 Ag & Ab Screen Negative (Negative)
[2024-02-10 17:12] LABS: Syphilis IgG w/Reflex Nonreactive (Nonreactive)
[2024-02-14 13:47] LABS: 1,25-Dihydroxyvitamin D 106 pg/mL (18-78)
== END 2024-02-08 02:40 | disposition home or self-care (01) ==
LOC: LBO 02:39
PROVIDERS: Obstetrics & Gynecology; Visit Provider Advanced Practice Midwife
DX: Z34.91 Encounter for supervision of normal pregnancy, unspecified, first trimester (principal); Z86.39 Personal history of other endocrine, nutritional and metabolic disease; R79.89 Other specified abnormal findings of blood chemistry
CPT/HCPCS: 36415; 80053; 86787; 86803; 86850; 86900; 86901; 87340; 87389; 82310; 82652; 83036; 83735; 83970; 84439; 84443; 85025; 86762; 86780; 87086

== ENCOUNTER 2024-02-08 12:08 | Outpatient (REF) | payer MEDICAID, SELFPAY ==
[2024-02-09 12:25] LABS: Chlamydia Result Negative (Negative); GC Result Negative (Negative)
== END 2024-02-08 12:09 | disposition home or self-care (01) ==
LOC: LBN 12:08
PROVIDERS: Visit Provider Advanced Practice Midwife
DX: Z34.91 Encounter for supervision of normal pregnancy, unspecified, first trimester (principal); Z3A.11 11 weeks gestation of pregnancy
CPT/HCPCS: 87491; 87591; 87086

== ENCOUNTER 2024-08-17 16:00 | Outpatient (CLI) | payer MEDICAID, SELFPAY ==
[2024-08-17 16:06] VITALS: BP 116/78; PULSE 88; TEMP 36.4
[2024-08-17 16:08] VITALS: BP 116/78; PULSE 88
[2024-08-17 17:16] VITALS: BP 116/78; PULSE 88; TEMP 36.4
--- NOTE | 2024-08-17 17:16 | W.OBNST ---
Date of service: 08/17/24 Time of Service: 17:16 NST Evaluation Reason for NST Reasons for Nonstress Test: OTHER, SEE COMMENT Reason for NST Other: FHR check Gestational Age Gestational Age in Weeks and Days: 38 Weeks and 3Days Test and Monitor Explained Test/Monitor Explained: Test Explained, Monitor Explained and Patient Verbalized Understanding Vital Signs Blood Pressure: 116/78 Pulse: 88 Temperature: 97.5 F Urine Results Urine Protein: Negative Urine Ketones: Negative Urine Glucose: Negative Urine Blood: Negative NST Information Date on Monitor: 08/17/24 Time on Monitor: 15:03 Date off Monitor: 08/17/24 Time off Monitor: 16:37 Total Time on Monitor: 94 NST Interventions: PO Hydration NST Evaluation Patient States Movement: Present FHR Baseline: 115 Variability: Moderate 6-25 bpm Accelerations: 15x15 Decelerations: None NST Results: Reactive Note Ultrasound Done: N/A. NST Note NST Reviewed and Verified by: Reva Monique
== END 2024-08-17 16:42 ==
LOC: BCD 16:01 → OBS 16:02
PROVIDERS: Visit Provider Advanced Practice Midwife
DX: O36.8330 Maternal care for abnormalities of the fetal heart rate or rhythm, third trimester, not applicable or unspecified (principal); Z3A.38 38 weeks gestation of pregnancy
CPT/HCPCS: 59025

== ENCOUNTER 2024-08-20 00:48 | Outpatient (CLI) | payer MEDICAID, SELFPAY ==
--- NOTE | 2024-08-20 07:00 | DI.US_ITS ---
Exam(s) US OB PHUC WEIGHT EXAM: US OB PHUC WEIGHT CLINICAL HISTORY: EFW,PHUC,Z34.90. TECHNIQUE: Transabdominal obstetrical ultrasound performed. COMPARISON: US POCUS EXAM from 01/30/2024 FINDINGS:: Number of fetuses: 1 position: TRANS LT Placental location: FUNDAL No evidence of previa. BIOMETRIC DATA: BPD: 9.2cm, 37weeks 3days HC: 34.44cm, 39weeks 6days AC: 35.18cm, 39weeks 1day FL: 7.32cm, 37weeks 3days EFW: 3,537.86g, 7lb 13.1oz, 59.3% Composite Age: 38weeks 3days JUAN: 08/31/2024 Heart Rate: 142bpm Amniotic fluid index: 10.39cm. Visually, amount of fluid is within normal limits. IMPRESSION: size and weight are within the expected range. DATA REPOSITORY:
== END 2024-08-20 01:08 ==
LOC: DI 00:48
PROVIDERS: Visit Provider Advanced Practice Midwife
DX: Z34.93 Encounter for supervision of normal pregnancy, unspecified, third trimester (principal); Z3A.39 39 weeks gestation of pregnancy
CPT/HCPCS: 76816

== ENCOUNTER 2024-08-24 21:39 | Inpatient (IN) | payer MEDICAID, SELFPAY ==
[2024-08-24 20:10] VITALS: BP 118/73; PULSE 84; PULSE 93; TEMP 36.2
[2024-08-24 20:20] VITALS: BP 118/73; PULSE 68; RESP 16; TEMP 36.2; O2SAT 97
[2024-08-24 20:24] VITALS: BP 118/73; PULSE 68; TEMP 36.2
[2024-08-24 21:24] VITALS: BP 118/73; PULSE 68; TEMP 36.2
--- NOTE | 2024-08-24 22:52 | HPE_ITS ---
Date of service: 08/24/24 Time of Service: 22:52 Assessment and Plan Assessment and plan (1) Transverse lie: Status: Acute Assessment and plan: Baby was transverse-left; now transverse-right. Subjectively good fluid and good mobility along abdomen. We had an extensive conversation regarding the risks and benefits of external version with subsequent induction of labor vs section. Ms. Oneal would like to avoid surgery if at all possible and opts for external version. We reviewed the risks of version include, but are not limited to, rupture of membranes, placental abruption, cord avulsion, intolerance, uterine rupture, and failure of the procedure resulting in possible . We discussed the possible means of anesthesia for pain control. We discussed spinal vs epidural vs without pain medications. Patient is considering epidural. We discussed the possible use of Terbutaline, but we will trial without it first. We discussed inducing immediately following a chievement of cephalic presentation. All questions were answered to the patient's satisfaction. She was consented for trial of external version, possible section. (2) Advanced maternal age (AMA) in : Status: Acute (3) : Status: Acute Assessment and plan: Presuming cephalic version is successful, Ms. Oneal would like to proceed with induction of labor. She does NOT desire a tubal ligation. She plans to take home her placenta. She would like [id number], immediate , and delayed cord clamping. Her GBS status is unknown; we discussed the importance of antibiotic coverage to reduce the risk of infection and sepsis; Ms. Oneal verbalizes understanding and declines antibiotics at this time (AMA form declining antibiotics signed). (4) Thrombophlebitis during : Status: Acute (5) Low TSH level: Status: Acute (6) Hypermobility syndrome: Status: Acute (7) Blood product declined: Status: Acute Assessment and plan: Patient states that she wishes to decline all blood products even if it results in her . We discussed that birthing a baby is a bloody process especially in the setting of an external version, possible , and risk of pp hemorrhage. Patient vocalized understanding and declines all blood products. Declination signed. OB-HPI Labor/Delivery History of Present Illness Reason for Visit: transverse lie: external version with induction Chief Complaint: Other (transverse lie). JUAN Calculator Estimated Delivery Date Method Current WG Current Estimate 08/27/24 Ultrasound #1 39w 4d Other Estimates 08/18/24 LMP (Certain) 40w 6d Comments: 38 yo at 49 4/7 as dated by 10 wk US presents for scheduled external version with induction for transverse lie. Ms. Oneal had an US performed 08/20 that identified a 3500 gram baby in transverse lie, head to the left. She was lost to follow up until, today. Limited bedside US performed, today, identifies a baby in tranverse lie, head to the right, back inferior (towards maternal feet). An extensive discussion was had in the office regarding section vs attempted cephalic version with induction; she has decided on trialing the cephalic version with induction. History of Present Expected Delivery Route/Plan - CNM - comanagement due to thrombophlebitis FOB- Chuy Oneal - (4th baby together) Specific Issues/Plan 1. Advanced maternal age- offered level 2 US which was declined, serum genetic testing declined. US scheduled at , reordered today 2. Tandem nursing- 3. History of Thrombophlebitis - Recurrence in right leg and ED visit 01/24 -US shows superficial venous thrombus, declined CT scan, repeat US also declined by pt 3a. 30-40 compression maternity hose prescription sent 02/09/24 4. Increased risk of preeclampsia - declines ASA due to allergy. 5. History of macrosomia- early glucose testing recommended and 1-hr GTT declined, Testing QID recommended but pt declines 6. 5-Ps neg 7. Low TSH 0.01, FT4 1.44, repeat in one month____ 8. History of Hypo or hyperparathyroidism- PTH - 15 (L), Ca+ 9.4 (NL), Mag 1.8 (NL), Vit D-NL 9. Declines GBS testing - counselled re: risks 10. Transverse lie at 39 wks, attempting to reach pt for reassessment and options counseling Informed Consent Informed Consent: Augmentation of Labor, Section Delivery, Induction of Labor, Regional Anesthesia, Risk,Benefits,Alternatives Discussed and Other Review of Systems All systems reviewed & are unremarkable except as noted in HPI and below PFSH All Active Problems (Updated 08/24/24 @ 23:20 by Maya Siu DO) Blood product declined (Acute) Hypermobility syndrome (Acute) Thrombophlebitis during (Acute) Transverse lie (Acute) on 39 week ultrasound Low TSH level (Acute) Venous embolism and thrombosis (Acute) superficial right calf High thyroid stimulating hormone (TSH) level (Acute) Advanced maternal age (AMA) in (Acute) (Acute) Pelvic floor dysfunction in female (Acute) Medical History (Updated 08/24/24 @ 23:20 by Maya Siu DO) History of hyperparathyroidism Celiac disease Transfusion of blood product declined due to anabaptist reason Family History (Updated 02/08/24 @ 11:01 by Velvet Quintanilla CNM) Father , age 67 Heart disease ND at age 67 Social History Smoking/Tobacco Use Status: Never Smoking risk assessment performed?: Yes Alcohol Intake: former Substance use type: does not use Housing: apartment History History 13 Para 3 Hx # Term Pregnancies 3 Multiple births 0 Hx # Pregnancies 0 Ectopic pregnancies 0 AB induced 0 Hx Number of Living Children 3 AB spontaneous 9 Past Pregnancies Del. Date GA/Weeks # Preg Succ Route Wgt Sex Labor Lgth Anesth esia Location Prov Complic 01/17/15 43 No Yes vaginal 7 lb 3 oz Female 22 03/25/16 18 No No vaginal 08/11/16 4 03/09/17 4 No No 03/06/18 4 No No 07/07/18 4 09/03/18 09/30/19 40 No Yes vaginal 7 lb 12 oz Female 1.5 hours 06/06/20 6 No No 09/16/21 10 No No 03/06/22 8 No No 03/07/23 41 No Yes vaginal 9 lb 8.9 oz Male 4 hrs Nery mar CNM Delivery Date: 01/17/15 Last Updated by: Velvet Cabral CNM Rebeca, home Delivery Date: 03/25/16 Last Updated by: Velvet Cabral CNM delivered at home unattended Delivery Date: 08/11/16 Last Updated by: Velvet Cabral CNM early SAB, uncertain of date. no complications Delivery Date: 03/09/17 Last Updated by: Velvet L Misha, CNM SAB, uncertain of dates, no complications Delivery Date: 03/06/18 Last Updated by: Velvet Cabral CNM SAB uncomplicated Delivery Date: 07/07/18 Last Updated by: Velvet Cabral CNM Uncertain of date, SAB uncomplicated Delivery Date: 09/03/18 Last Updated by: Velvet Cabral CNM SAB uncomplicated Delivery Date: 09/30/19 Last Updated by: Velvet Quintanilla CNM Delivered at home due to covid and home or center births not offered. - attended. Radha Delivery Date: 06/06/20 Last Updated by: Velvet Cabral CNM SAB uncomplicated Delivery Date: 09/16/21 Last Updated by: Velvet Cabral CNM SAB uncomplicated Delivery Date: 03/06/22 Last Updated by: Velvet Cabral CNM SAB uncomplicated Delivery Date: 03/07/23 Last Updated by: Velvet Quintanilla CNM Induced-post dates; established care into practice at 41 +. Spontaneous labor after one dose Meds Allergies and Home Medications Allergies Allergy/AdvReac Type Severity Reaction Status Date / Time aspirin Allergy shortness Verified 08/24/24 15:52 of breath Penicillins Allergy rash Verified 08/24/24 22:59 Home Medications ?Medication ?Instructions ?Recorded ?Confirmed ?Type vitamin no.102-iron 90 1 cap PO DAILY 03/03/23 08/24/24 History mg-folate 1 mg-dha 200 mg capsule cyanocobalamin (vitamin B-12) 2,000 mcg PO DAILY 04/19/23 08/24/24 History 1,000 mcg capsule Exam Physical Exam Vital signs: Temp Pulse Resp BP Pulse Ox 97.2 F L 68 16 118/73 97 08/24/24 20:20 08/24/24 20:20 08/24/24 20:20 08/24/24 20:20 08/24/24 20:20 Vital Signs Reviewed: Yes Narrative: general: Well nourished female in no immediate distress HEENT: Normocephalic Resp: Unlabored breathing Abdomen: Gravid, soft, non-tender Ext: +2 edema noted equally bilaterally : SVE FT/th/high/midline/soft FHT: Cat 1; reactive and reassuring [place]: Intermittent; patient reports mild sensation Detailed Labor and Delivery Exam Naranjo Score: Cervical Points Exam 0 1 2 3 Dilation Closed 1-2cm 3-4 cm 5-6cm Effacement 0-30% 40-50% 60-70% 80% Consistency Firm Medium Soft Station -3 -2 -1,0 +1,+2 Position Posterior Mid Anterior Fetus A Presentation: Transverse Lie (head to right; back inferior (towards maternal feet)) Est. Weight: 7 lb 11.459 oz Results Results Group Beta Strep: Done-Result Unknown (result pending) Blood Type: AB+ Rubella Status: Immune Varicella Immunity: Immune Lab Results: Syphillis neg, HIV neg, Hep B neg, Hep C neg, gonorrhea neg, Chlamydia neg, GBS unknown Risk Assessment Risk for Shoulder Dystocia Historical/Initial OB: POSITIVE FOR: Previous Macrosomia; NEGATIVE FOR: Pelvic Abnormality, Pre- BMI>30 or Previous Shoulder Dystocia Risk for Pre-Eclampsia Date Initiated/Initials: 02/08/24 Yes, if one or more: NEGATIVE FOR: Hx Pre-E/Gest HTN, Chronic HTN, Multiple Gestation, Pre-gestational DM, Renal Disease, Systemic Lupus or APA Syndrome Yes, if 2 or more: POSITIVE FOR: Age>= 35 yrs; NEGATIVE FOR: Nulliparity, >10yr btwn pregnancies, BMI>30, ethinicty, Mother/Sister w/ Pre-E or Previous IUGR Risk for Post- Hemorrhage Initial: NEGATIVE FOR: Multiple Gestation, Previous PPH, Known Clotting Defici ency, Grand Multiparity or Anticoagulation Risks Reviewed Risks Reviewed Upon Admission: Yes
[2024-08-25] VITALS (113 sets, daily range): BP systolic 109–134; BP diastolic 57–85; PULSE 74–196; RESP 18–20; TEMP 36.4–37.1; O2SAT 92–100; BMI 32.3
[2024-08-25] MEDS: Normal Saline Flush 10 ML SYR IVP (06:47)
[2024-08-25 07:01] LABS: HCT 40.7 % (36.0-46.0); MCH 30.8 pg (27.0-33.0); MCHC 34.4 % (32.0-36.0); MCV 90 fL (80-95); MPV 12.8 fL (8.0-11.0); Platelet Count 134 10^3/uL (130-400); RBC 4.54 10^6/uL (3.93-5.22); RDW 14.2 % (11.7-14.6); RDW-SD 46.5 fL; WBC 7.67 10^3/uL (4.4-10.8)
--- NOTE | 2024-08-25 08:42 | W.PM.PROGNOT ---
Date of Service Date of service: 08/25/24 Time of Service: 08:42 Objective Last Vital Signs Temp 97.5 F L 08/25/24 07:35 Pulse 90 08/25/24 08:41 Resp 18 08/25/24 07:35 BP 121/76 08/25/24 07:35 Pulse Ox 99 08/25/24 08:39 Laboratory Results - last 24 hr 08/25/24 06:41 WBC 7.67 RBC 4.54 Hgb 14.0 Hct 40.7 MCV 90 MCH 30.8 MCHC 34.4 RDW 14.2 Plt Count 134 MPV 12.8 H TSH 0.10 L ABO/Rh AB Positive Antibody Screen NEGATIVE Objective Narrative Objective Narrative: Patient found resting well this morning. We discussed the plan for external version with induction, possible , and she still desires to proceed. Bedside US appreciates continued right transverse lie; back still down towards mom's feet; fundal placenta; adequate fluid. Hgb 14+, Platelets in the 130's. Awaiting surgical staff and anesthesia establishement. Time Spent with Patient Time Spent with Patient: 25-34 minutes Time was spent: preparing to see the patient(eg.review tests), obtaining and/or reviewing separately otained hiistory, ordering medications,tests, procedures, referring, communicating with other health career development coordinator/teacher, counseling the patient and care coordination
--- NOTE | 2024-08-25 08:53 | ANES.PREOP_ITS ---
General Info Date of Service Date Performed: 08/25/24 Height: 5 ft 6 in Weight: 90.718 kg Body Mass Index (BMI): 32.3 Meds Allergies and Home Medications Allergies Allergy/AdvReac Type Severity Reaction Status Date / Time aspirin Allergy shortness Verified 08/24/24 15:52 of breath Penicillins Allergy rash Verified 08/24/24 22:59 Home Medication ?Medication ?Instructions ?Recorded vitamin no.102-iron 90 1 cap PO DAILY 03/03/23 mg-folate 1 mg-dha 200 mg capsule cyanocobalamin (vitamin B-12) 2,000 mcg PO DAILY 04/19/23 1,000 mcg capsule Current Visit Medications: Current Medications Generic Name Dose Route Start Last Admin Trade Name Freq PRN Reason Stop Dose Admin Ringer's Solution 1,000 mls @ 0 mls/hr 08/25/24 17:30 IV INFUSION AGNIESZKA Per Protocol Ringer's Solution 500 mls @ 500 mls/hr 08/25/24 18:00 IV 08/25/24 18:59 BOLUS ONE IV Miscellaneous Supplies 1 each 08/25/24 17:30 Iv Access IV DIRECTED AGNIESZKA Sodium Chloride 0 ml 08/24/24 21:39 08/25/24 06:47 Normal Saline Flush 10 Ml Syr IVP 10 ml PRN PRN Administration Sodium Chloride 0 ml 08/25/24 08:30 Normal Saline Flush 10 Ml Syr IVP BID AGNIESZKA Sodium Chloride 0 ml 08/24/24 21:39 Normal Saline 10 Ml Vial IJ DIRECTED PRN Terbutaline Sulfate 0.25 mg 08/24/24 22:00 Terbutaline 1 Mg/Ml Vial SC DIRECTED AGNIESZKA PFS Active Problems Active Problems: Problem Status Onset Code Blood product declined Acute Z78.9 Hypermobility syndrome Acute M35.7 Thrombophlebitis during Acute O22.20 Transverse lie Acute O32.2XX0 Low TSH level Acute R79.89 Venous embolism and thrombosis Acute I82.90 High thyroid stimulating hormone (TSH) level Acute R79.89 Advanced maternal age (AMA) in Acute Acute Z34.90 Pelvic floor dysfunction in female Acute M62.89 Medical History Medical History (Updated 08/24/24 @ 23:20 by Maya Siu DO) History of hyperparathyroidism Celiac disease Transfusion of blood product declined due to bahai reason Tobacco Smoking/Tobacco Use Status: Never Alcohol Alcohol Intake: former Substance Use Substance use type: does not use Prental History History 2 13 Para 3 Hx # Term Pregnancies 3 Multiple births 0 Hx # Pregnancies 0 Ectopic pregnancies 0 AB induced 0 Hx Number of Living Children 3 AB spontaneous 9 Past Pregnancies Del. Date GA/Weeks # Preg Succ Route Wgt Sex Labor Lgth Anesth esia Location Prov Complic 01/17/15 43 No Yes vaginal 3260.195 g Female 22 03/25/16 18 No No vaginal 08/11/16 4 03/09/17 4 No No 03/06/18 4 No No 07/07/18 4 09/03/18 09/30/19 40 No Yes vaginal 3515.341 g Female 1.5 hours 06/06/20 6 No No 09/16/21 10 No No 03/06/22 8 No No 03/07/23 41 No Yes vaginal 4334.642 g Male 4 hrs Luma carias CNM Delivery Date: 01/17/15 Last Updated by: Velvet Cabral CNM Rebeca, home Delivery Date: 03/25/16 Last Updated by: Velvet Cabral CNM delivered at home unattended Delivery Date: 08/11/16 Last Updated by: Velvet Cabral CNM early SAB, uncertain of date. no complications Delivery Date: 03/09/17 Last Updated by: Velvet Cabral CNM SAB, uncertain of dates, no complications Delivery Date: 03/06/18 Last Updated by: Velvet Cabral CNM SAB uncomplicated Delivery Date: 07/07/18 Last Updated by: Velvet Cabral CNM Uncertain of date, SAB uncomplicated Delivery Date: 09/03/18 Last Updated by: Velvet Cabral CNM SAB uncomplicated Delivery Date: 09/30/19 Last Updated by: Velvet Quintanilla CNM Delivered at home due to covid and home or center births not offered. - attended. Radha Delivery Date: 06/06/20 Last Updated by: Velvet Cabral CNM SAB uncomplicated Delivery Date: 09/16/21 Last Updated by: Velvet Cabral CNM SAB uncomplicated Delivery Date: 03/06/22 Last Updated by: Velvet Cabral CNM SAB uncomplicated Delivery Date: 03/07/23 Last Updated by: Velvet Quintanilla CNM Induced-post dates; established care into practice at 41 +. Spontaneous labor after one dose Vital Signs and Lab Results Vital Signs Most Recent Vital Signs in EMR: Most Recent Vital Signs Temp Pulse Resp BP Pulse Ox 36.4 C L 84 18 110/71 100 08/25/24 07:35 08/25/24 08:50 08/25/24 07:35 08/25/24 08:50 08/25/24 08:49 Lab Results 08/25/24 06:41 Blood Type / Crossmatch: 2 Antibody Screen NEGATIVE 08/25/24 Complete Blood Count: 2 White Blood Count 7.67 10^3/uL (4.4-10.8) 08/25/24 06:41 Red Blood Count 4.54 10^6/uL (3.93-5.22) 08/25/24 06:41 Hemoglobin 14.0 g/dL (11.2-15.7) 08/25/24 06:41 Hematocrit 40.7 % (36.0-46.0) 08/25/24 06:41 Platelet Count 134 10^3/uL (130-400) 08/25/24 06:41 Complete Metabolic Panel: 2 No Data to Display Liver Function Panel: 2 No Data to Display Coagulation Panel: 2 No Data to Display Cardiac Panel: 2 No Data to Display Arterial Blood Gas: 2 No Data to Display Venous Blood Gas: 2 No Data to Display Pancreas Panel: 2 No Data to Display Thyroid Panel: 2 Thyroid Stimulating Hormone (TSH) 0.10 uIU/mL (0.36-3.74) L 08/25/24 06:41 Infectious Disease: 2 Syphilis Serology Pending 08/25/24 06:41 Blood Cultures: 2 No Data to Display Toxicology Panel: 2 No Data to Display Panel: 2 No Data to Display Imaging and Studies Imaging and Studies Study information below may be from another EMR and interpreted by another provider. Please see original notes in EMR for more complete details. EKG Summary: EKG PATIENT NAME: Enedina Oneal UNIT #: [id number] ORDERING PROVIDER: Robin Dewitt DO PRIMARY CARE PROVIDER: UNKNOWN,UNKNOWN DATE/TIME OF SERVICE: 01/25/2403 : 1985 PERFORMING LOCATION: ER APPROVED REPORT Exam: Resting ECG Reason for Exam: chest pain Patient Location: E HR:71 bpm ECG Measurements Heart Rate 71 AXIS MA 150 P 14 QRSd 93 QRS 15 QT 407 T23 QTc 443 Conclusion Sinus rhythm...normal P axis, V-rate 60- 99 ST elev, probable normal early repol pattern...ST elevation, age<55 Physician: no stemi, inverted t wave in III, no q wave, no braod terminal s wave in lead I - <Electronically signed by ROBIN DEWITT DO in OV> E-Sign Date: 01/25/24 E-Sign Time: 710 ADDENDUM APPROVED REPORT Exam: Resting ECG Reason for Exam: chest pain Patient Location: E HR:71 bpm ECG Measurements Heart Rate 71 AXIS MA 150 P 14 QRSd 93 QRS 15 QT 407 T23 QTc 443 Conclusion Sinus rhythm...normal P axis, V-rate 60- 99 ST elev, probable normal early repol pattern...ST elevation, age<55 Physician: no stemi, inverted t wave in III, no q wave, no braod terminal s wave in lead I I have reviewed and I agree with the emergency room physician's ECG interpretation. Electronically signed by: <Electronically signed by Shiela Leiav M.D. in [facility]> 01/30/24 0824 Cosigned by: Anesthesia Assessment and Plan Anesthesia History Personal History: No History of Anesthesia Complications Family History: No Family History of Anesthesia Complications Exercise Tolerance Exercise Tolerance: Metabolic Equivalents>4 Pertinent Negatives Pertinent Negatives: No Symptoms of GERD, No Major Cardiovascular Symptoms or Complaints, No Major Pulmonary Symptoms or Complaints and No History of CVA/TIA Cardiac & Pulmonary Exam Cardiac Exam: Normal S1/S2 Heart Sounds Pulmonary Exam: Clear Bilateral Breath Sounds Implantable Cardiac Device Does patient have a Pacemaker or an ICD?: No Airway Exam Known Difficult Airway: No Mallampati Class: 2 Mouth Opening: Normal (> 3cm) Thyromental Distance: Greater than 3 cm Neck Range of Motion: Full ROM Neck Circumference: Normal Teeth Condition: Normal Dentition Tooth Numberin 1. missing tooth ASA Classification ASA Score: ASA 2 Emergency Case?: No NPO Status NPO Status: NPO Clears >2 hours, Solids >8 hours Status Status: Confirmed Anesthesia Plan Resuscitation Status: Full Code Anesthesia Technique: Epidural Anesthesia Airway Planned: Natural Airway Pain Management: Surgeon and patient request nerve block Monitors Used: Standard Monitors
--- NOTE | 2024-08-25 08:54 | W.ANESNEU ---
Epidural/Spinal Catheter Date Performed: 08/25/24 Procedure Start: 08:36 Procedure Stop: 08:45 Requesting Provider: Maya Siu Procedure Location: Obstetrics Reason Performed: Other (Epidural for an external version) Standard Monitors Applied: Blood Pressure and SpO2 Patient Position: Sitting Sedation Given (Indicate Dose Given): No Sedation given Patient Mental Status: Awake Sterility: Hand Hygiene, Surgical Cap, Surgical Mask, Sterile Gloves, Sterile Drape/Sheet and Chlorhexidine Procedure Location: L3-L4 Interspace Epidural Needle: Tuohy 17 Guage Needle Length: 3.5 Inch Needle Approach: Midline Epidural Procedure: Skin Prepped, Sterile Drape Placed, 1% Lidocaine to skin and subcutaneous tissue with 25G needle, Tuohy Needle placed, JUANPABLO to Saline Used, Epidural Catheter Placed, Negative Heme, Negative CSF Flow and Tuohy Needle Removed Catheter Placed?: Catheter Placed Test Dose (Indicate Dose Given): 5ml 1.5% Lidocaine with 1:200K Epinephrine Given and Negative Test Dose Loss of Resistance Depth (cm): 9 Catheter depth at skin (cm): 14 Dressing: Sorbaview Dressing Placed and Dressing reinforced with Tape Epidural Provider Bolus (Indicate Dose Given): None Given Additives (Indicate Dose Given ): None Infusion Medication: No Infusion Started Block Level: N/A Paresthesia: Right Paresthesia Duration: Transient Ultrasound: Not Used Number of Attempts (See previous attempts in note section): 1 Procedure Tolerated: No Complications and Patient tolerated well Procedure Outcome: Successful Procedure Comment:: Plan for Chloroprocaine load prior to Version Performed By: Kaleb Cantu
[2024-08-25] MEDS: Sodium Citrate 30 ML CUP (09:46)
--- NOTE | 2024-08-25 11:05 | PROC.BLANK_ITS ---
Date of service: 08/25/24 Time of Service: 11:05 Version Note Version Note DATE OF PROCEDURE: 08/25/24 PRE-OP DIAGNOSES: Transverse lie-right, back down POST-OP DIAGNOSES: other (Cephalic presentation) PROCEDURE: Patient was consented for external cephalic version for transverse lie-right with back down. Epidural anesthesia was established and levels were appropriate. Pre-procedural US confirmed position. Fluid was appropriate and placenta was noted to be fundal. NST was reactive and reassuring. Based on the position and natural movements of the baby, it was determined that a clockwise approach would likely be the most effective. Gentle pressure was applied to the back with pursuasive pressure along the upper spine and head to encourage a clockwise rotation. Intermittent auscultation throughout the procedure remained reassuring and US ultimately appreciated rotation of the head through breech, then into a transverse lie-left presentation with back down towards maternal back; one foot was noted to be extending into the lower uterine segment. Mom became nauseous, and was therefore repositioned into sitting up and given a dose of Bicitra. After she felt better, she was positioned again into supine position with some reverse trendelenburg. Gentle pressure was then applied in order to continue progressive clockwise rotation, which ultimately resulted in successful cephalic presentation. However, heart tones were appreciated to be down in the 60's. Mother was repositioned onto her left side, a bolus was started, and oxygen was applied. The heart tones began to recover, and ultimately resolved to a reassuring baseline in the 110's. The oxygen was discontinued and mother was allowed to recover in the side lying position. While in this position, the FHT's recovered to a category 1 strip consistently. After 30 minutes of observation, a follow up bedside US was performed, and the baby remained in cephalic presentation. The customer relations coordinator and I entered the room together to discuss plans for AROM and nipple stimulation for natural Oxytocin release. Patient was consented for this. I applied fundal pressure while the customer relations coordinator performed SVE and attempted AROM first with an amniohook; then with an FSE given tenacity of the membranes. Of note, she reported an exam of /-1 and confirmed cephalic presentation. After several attempts she offered me a try. I washed my hands, dawned sterile gloves, and attempted the same with a fresh amniohook and FSE, though I encountered the same tenacity of the bag. We discussed with mother placement of the FSE to the scalp to confirm AROM and optimize training. She consented. FSE was applied to the scalp without issue; therefore AROM to scant fluid around 11 am. Ms. Oneal was sat up into thrown's position. All questions were answered to the patient's satisfaction. Care of patient officially handed off to customer relations coordinator for management of induction. Assisting Surgeon: Elda Alvarenga Wool Cleaner: Leticia Hernández Anesthesia: epidural Complications: Other (see above) Patient's condition: other (good) Version Outcome: Confirmed via Ultrasound and Successful Pre/Post Procedure NST Pre-Procedure NST Time on Monitor: 39 Patient States Movement: Present FHR Baseline: 125 Variability: Moderate 6-25 bpm Decelerations: None NST Results: Reactive Post Procedure NST Patient States Movement: Present FHR Baseline: 130 Variability: Moderate 6-25 bpm Decelerations: None NST Results: Reactive (Reactive and reassuring) Version Ultrasound Ultrasound Performed Ultrasound Image Saved: Yes Pre-Procedure Ultrasound Placental Location: Fundal Presentation: Transverse/Shoulder
--- NOTE | 2024-08-25 11:40 | PGE_ITS ---
Date of service: 08/25/24 Time of Service: 11:40 Informed Consent Informed Consent: Augmentation of Labor, Section Delivery, Induction of Labor, Regional Anesthesia, Risk,Benefits,Alternatives Discussed and Other Pelvic Exam Dilation: 3.5 Effacement (%): 50 station: -3 Position: OP Cervix Position: posterior Consistency: soft BISHOPS Score(Cervical Ripeness Score): 5 Vaginal Exam Presentation: Vertex Comments: slow leaking of fluid Contractions Monitor Mode: Palpation Contraction Frequency(min): irregular to none Fetus A Monitor: Internal (FSE) Heart Rate Baseline: 140 Presentation: Vertex Variability: Moderate (6-25 BPM) Categories: Category I FHR Rhythm: Regular Characteristics: Normal Accelerations: Present Decelerations: None Amniotic Membrane Status: Ruptured (1043 with amniohook x2 and FSE placement) Rupture Method: Artifical Amniotic Fluid: [place] Tinged Amount: minimal Date of Membrane Rupture: 08/25/24 Time of Membrane Rupture: 10:43 Assessment and Plan Assessment and plan (1) Transverse lie: Status: Acute Assessment and plan: A: Successful ECV to longitudinal cephalic lie P: AROM and IOL (2) Encounter for induction of labor: Status: Acute Assessment and plan: A: at 395d IOL for malposition S/P Successful ECV AROM with FSE in place Cat 1 FHT GBS unknown, prophylaxis declined prenatally P: Nipple stimulation with breast pump, SROM 1043. Expectant management. Reassess 2-4 hours Objective Abnormal lab results 08/25/24 Range/Units 06:41 MPV 12.8 H (8.0-11.0) fL TSH 0.10 L (0.36-3.74) uIU/mL Temp Pulse Resp BP Pulse Ox 97.5 F L 101 H 18 126/69 100 08/25/24 09:30 08/25/24 10:50 08/25/24 09:30 08/25/24 10:44 08/25/24 10:49 Laboratory Results WBC 7.67 10^3/uL (4.4-10.8) 08/25/24 06:41 RBC 4.54 10^6/uL (3.93-5.22) 08/25/24 06:41 Hgb 14.0 g/dL (11.2-15.7) 08/25/24 06:41 Hct 40.7 % (36.0-46.0) 08/25/24 06:41 MCV 90 fL (80-95) 08/25/24 06:41 MCH 30.8 pg (27.0-33.0) 08/25/24 06:41 MCHC 34.4 % (32.0-36.0) 08/25/24 06:41 RDW 14.2 % (11.7-14.6) 08/25/24 06:41 Plt Count 134 10^3/uL (130-400) 08/25/24 06:41 MPV 12.8 fL (8.0-11.0) H 08/25/24 06:41 TSH 0.10 uIU/mL (0.36-3.74) L 08/25/24 06:41 ABO/Rh AB Positive 08/25/24 06:41 Antibody Screen NEGATIVE 08/25/24 06:41 Vital Signs Reviewed: Yes Subjective Patient Reports: No new Complaints Interval history since last seen: Assumed care of Enedina after successful ECV. Epidural catheter removed. FSE in place to assist ROM, patient does report she is leaking small amounts of fluid. Planning clear liquids currently, drinking apple juice. OOb to void. Last SVE by MD about 3-4cm/50/-3. Patient to use breast pump to encourage contractions. Baby direct OP, discussed position changes to encourage rotation, also reassured with her obstetric hx position is unlikely to be an issue in this labor. GBS prophylaxis for GBS unknown status declines, declination/AMA form signed. Results Hemoglobin/Hematocrit: Hgb 14.0 g/dL (11.2-15.7) 08/25/24 06:41 Hct 40.7 % (36.0-46.0) 08/25/24 06:41 Abnormal Lab Findings: Abnormal Labs 08/25/24 06:41 MPV 12.8 H TSH 0.10 L
[2024-08-25] MEDS: Lactated Ringers 1,000 ML 125 ML IV (15:15)
[2024-08-25] MEDS: Oxytocin/Normal Saline 30 UNIT/500 ML BAG 1 UNITS IV (15:15)
[2024-08-25] MEDS: Lactated Ringers 500 ML IV (16:45)
--- NOTE | 2024-08-25 17:12 | W.PM.OBNL1 ---
Date of service: 08/25/24 Time of Service: 15:15 Informed Consent Informed Consent: Augmentation of Labor, Section Delivery, Induction of Labor, Regional Anesthesia, Risk,Benefits,Alternatives Discussed and Other Pelvic Exam Comments: SVE deferred, FSE in place Contractions Monitor Mode: None Contraction Frequency(min): 10-12 Intensity: Moderate Fetus A Heart Rate Baseline: 120 Variability: Moderate (6-25 BPM) Accelerations: 15 X 15 Decelerations: None Amniotic Membrane Status: Ruptured Assessment and Plan Assessment and plan (1) Encounter for induction of labor: Status: Acute Assessment and plan: A: IOL for malposition s/p successful ECV FSE in place Cat 1 FHT P: Start low dose Pitocin Reassess 1 hour Objective Abnormal lab results 08/25/24 Range/Units 06:41 MPV 12.8 H (8.0-11.0) fL TSH 0.10 L (0.36-3.74) uIU/mL Temp Pulse Resp BP Pulse Ox 97.7 F 94 H 20 119/70 98 08/25/24 16:00 08/25/24 17:10 08/25/24 13:01 08/25/24 15:40 08/25/24 17:10 Laboratory Results WBC Cancelled 08/25/24 14:52 RBC Cancelled 08/25/24 14:52 Hgb Cancelled 08/25/24 14:52 Hct Cancelled 08/25/24 14:52 MCV Cancelled 08/25/24 14:52 MCH Cancelled 08/25/24 14:52 MCHC Cancelled 08/25/24 14:52 RDW Cancelled 08/25/24 14:52 Plt Count Cancelled 08/25/24 14:52 MPV Cancelled 08/25/24 14:52 TSH 0.10 uIU/mL (0.36-3.74) L 08/25/24 06:41 ABO/Rh Cancelled 08/25/24 14:52 Antibody Screen Cancelled 08/25/24 14:52 Subjective Patient Reports: No new Complaints Interval history since last seen: Contraction frequency remains about every 10-12 minutes. Took walk around hospital. Discussed Pitocin as induction agent, reviewed risks and benefits as well as low dose protocol. Pt amenable to initiating Pitocin @ 1mU/min and reassess in 1 hour. Results Hemoglobin/Hematocrit: Hgb Cancelled 08/25/24 14:52 Hct Cancelled 08/25/24 14:52 Abnormal Lab Findings: Abnormal Labs 08/25/24 06:41 MPV 12.8 H TSH 0.10 L
--- NOTE | 2024-08-25 17:45 | W.PM.OBNL1 ---
Date of service: 08/25/24 Time of Service: 17:45 Informed Consent Informed Consent: Augmentation of Labor, Section Delivery, Induction of Labor, Regional Anesthesia, Risk,Benefits,Alternatives Discussed and Other Pelvic Exam Dilation: 4 Effacement (%): 60 station: -4 Position: AARON (AARON/LOT variable) Cervix Position: posterior Consistency: medium Vaginal Exam Presentation: Vertex Contractions Monitor Mode: External Contraction Frequency(min): 6-10 Intensity: Moderate Fetus A Monitor: Internal (FSE) Heart Rate Baseline: 115 Variability: Minimal (1-5 BPM) Categories: Category II Characteristics: Bradycardia Accelerations: Absent Decelerations: Prolonged Recurrence: Intermittent Amniotic Membrane Status: Ruptured Assessment and Plan Assessment and plan (1) Encounter for induction of labor: Status: Acute Assessment and plan: A: FSE replaced Cat 2 FHT with resolution to Cat 1 after FSE placed P: Restart Pitocin at 2mU/min after 20 minutes of Cat 1 FHT. Increase per protocol q 30min. Continue IVFB. Continuous monitoring. Objective Abnormal lab results 08/25/24 Range/Units 06:41 MPV 12.8 H (8.0-11.0) fL TSH 0.10 L (0.36-3.74) uIU/mL Temp Pulse Resp BP Pulse Ox 97.7 F 86 20 119/70 98 08/25/24 16:00 08/25/24 17:41 08/25/24 13:01 08/25/24 15:40 08/25/24 17:40 Laboratory Results WBC Cancelled 08/25/24 14:52 RBC Cancelled 08/25/24 14:52 Hgb Cancelled 08/25/24 14:52 Hct Cancelled 08/25/24 14:52 MCV Cancelled 08/25/24 14:52 MCH Cancelled 08/25/24 14:52 MCHC Cancelled 08/25/24 14:52 RDW Cancelled 08/25/24 14:52 Plt Count Cancelled 08/25/24 14:52 MPV Cancelled 08/25/24 14:52 TSH 0.10 uIU/mL (0.36-3.74) L 08/25/24 06:41 ABO/Rh Cancelled 08/25/24 14:52 Antibody Screen Cancelled 08/25/24 14:52 Subjective Interval history since last seen: Intermittent periods of bradycardia to 100-110 starting at 1640 after FSE disconnected and External monitors applied. Pitocin has been at 1mU/min x 60 minutes without a significant perceived change in uterine frequency per patient. FHT previously Cat 1 with baseline 120s for several hours. Unable to remove original FSE due to station. Maternal position changed to semi fowlers and side lying left and right. FHR would return to baseline of 120 then drop again to the 110s. 500cc IVFB initiated. Pitocin discontinued. SVE performed, no cord felt, vertex now at -4 station from -3 and actively moving. Bedside ultrasound shows AARON/LOT. Consulted with , recommended replacing FSE which was successfully replaced at 1720 Results Hemoglobin/Hematocrit: Hgb Cancelled 08/25/24 14:52 Hct Cancelled 08/25/24 14:52 Abnormal Lab Findings: Abnormal Labs 08/25/24 06:41 MPV 12.8 H TSH 0.10 L
[2024-08-25 21:48] LABS: T4, Free 1.1 ng/dL (0.8-2.2)
--- NOTE | 2024-08-25 22:40 | OBVDS_ITS ---
Date of service: 08/25/24 Time of Service: 22:40 OB Labor/ Delivery Information Baby A Delivery Delivery Method: Spontaneaous Presentation: Vertex Cephalic Position: Vertex Vertex Position: Left Occipital Anterior Cord Description-Baby A: 3 Vessels Amniotic Fluid: Clear Estimated Blood Loss: 150 Delivery Outcome: Liveborn Complications: none Infant Transferred: Remains with Mother Providers Doctor: Maya Siu Nurse Bluing Oven Tender: Elda Alvarenga Machine Stone Polisher Apprentice: Ronald Gusman Nurse: Jessica Escamilla Nurse: Remedios Monique Labor/Delivery Information Number of Babies in Womb: 1 Group Beta Strep: Not Done Rubella Status: Immune Blood Type: AB+ Varicella Immunity: Immune Maternal Complications: None Shoulder Dystocia: No Note: FHTs 120s during first stage of labor. FHTs 130s in second stage. She progressed to full dilation on the toilet in Room 301 and began feeling pushy. We walked carefully to room 300 to get in the tub where she had about 3 contractions and delivered a vigorous male baby on hands and knees. Second stage huddle was done. Baby was placed on mother's abdomen and dried and stimulated. Spontaneous cry. Cord was clamped and cut by mom after transitioning onto the bed . The placenta delivered spontaneously and appears to by intact with a three vessel cord. Pitocin was not administered due to firm fundus and no bleeding. The perineum was inspected and intact . The baby did breastfeed. After delivery, Mother and baby were stable and bonding well in the delivery room and there were no complications. Stages of Labor Onset of Labor Date: 08/25/24 Onset of Labor Time: 17:00 Complete Dilatation Time: 21:10 ROM Baby A: 08/25/24 ROM Baby A: 10:43 Infant Delivery Date-Baby A: 08/25/24 Infant Delivery Time-Baby A: 21:42 Placenta Delivery Date-Baby A: 08/25/24 Placenta Delivery Time-Baby A: 22:00 Labor-Stage 3 Duration: 18 minutes Total Length of Labor-Baby A: 4 hours and 42 minutes Placenta Cultured: No Placenta Status: Delivered Baby A Infant Gender: Male Gestational Status: Term (39-41.6 wks) Gestational Age in Weeks/Days: 39 Weeks and 4 Days Score-1 Minute Interval(Baby A) Heart Rate-1 minute: 100 BPM or Greater Respiratory Effort- 1 minute: Spontaneous/Strong Cry Muscle Tone-1 minute: Active Movement Reflex Response-1 minute: Prompt Response Color-1 minute: Pallor or Cyanosis Score-5 Minute Interval(Baby A) Heart Rate- 5 minute: 100 BPM or Greater Respiratory Effort-5 minute: Spontaneous/Strong Cry Muscle Tone-5 minute: Active Movement Reflex Response-5 minute: Prompt Response Color-5 minute: Bluish Hands or Feet Note: 8/9
[2024-08-26 00:30] VITALS: BP 122/71; PULSE 74; RESP 18; TEMP 36.9; O2SAT 100
[2024-08-26 00:33] VITALS: BP 121/55; PULSE 103
[2024-08-26 08:00] VITALS: BP 120/65; PULSE 95; RESP 17; TEMP 36.7; O2SAT 99
--- NOTE | 2024-08-26 09:36 | W.ANESPOSTOP ---
Postoperative Evaluation Date, Time and Location Date Performed: 08/26/24 Time Performed: 09:36 Patient Location: Obstetrics Vital Signs Most Recent Imported Vital Signs: Most Recent Vital Signs Temp Pulse Resp BP Pulse Ox 36.9 C 103 H 18 121/55 L 100 08/26/24 00:30 08/26/24 00:33 08/26/24 00:30 08/26/24 00:33 08/26/24 00:30 Assessment Mental Status: Awake (Alert & Oriented to Patient Baseline) Airway and Respiratory Function: Patent airway with normal (patient baseline) respiratory exam Cardiovascular Function: Hemodynamically Stable Hydration Status: Adequately Hydrated Nausea & Vomiting: No Nausea or Vomiting Pain: Pt. Denies Any Pain Peripheral Nerve Block: Other (Epidural appropriately resolved, denied complaint, denied headache, denied backpain. Per RN catheter removed with tip intact.) Postoperative Comments:: Did report paresthesias in her finger tips, this is a presenting symptom of her pernicious anemia. We did discuss this is most likely related to her changing physiological status and not the epidural
--- NOTE | 2024-08-26 10:02 | W.PM.OBPNV1 ---
Date of service: 08/26/24 Time of Service: 10:02 Assessment and Plan Assessment and plan (1) care and examination of lactating mother: Status: Acute Assessment and plan: Caring for baby independently. Pain is managed well. Voiding without difficulty. well. A - stable mother and baby , Post day 2 P - Discharge to home. Routine post instructions. Plan 6wk PP telephone visit Subjective Subjective Interval history: Slept some overnight, NB feeding is going well. No PO meds, minimal cramping, bleeding lightening. OOB to void, no BM yet. Patient comments: No complaints, Pain well controlled, Tolerating diet and Flatus present Patient's Mood: calm [place] baby status: Doing well, Nursing well, Rooming in and Strong Bonding Observed [place] feeding status: Exclusively breast feeding Exam Physical Exam Vital signs: Temp Pulse Resp BP Pulse Ox 98.1 F 95 H 17 120/65 99 08/26/24 08:00 08/26/24 08:00 08/26/24 08:00 08/26/24 08:00 08/26/24 08:00 Vital Signs Reviewed: Yes Constitutional Constitutional: no acute distress Breast Exam Bilateral: Breast Exam: Normal and Soft Nipple Exam: Normal and Uninjured Respiratory Exam Respiratory Exam: Normal Cardiovascular Exam Cardiovascular Exam: Normal Abdominal Exam Abdomen: Diastasis (2 fb) Fundal Exam Fundus: Below Umbilicus and Firm Exam Perineum: Intact Comments: lochia small rubra Neurological Exam Neurological Exam: Normal Psychiatric Exam Psychiatric Exam: Normal Results Hemoglobin/Hematocrit: Hgb Cancelled 08/25/24 14:52 Hct Cancelled 08/25/24 14:52 Abnormal Lab Findings: Abnormal Labs 08/25/24 06:41 MPV 12.8 H TSH 0.10 L
--- NOTE | 2024-08-26 10:05 | DSE_ITS ---
Date of service: 08/26/24 Time of Service: 10:05 DS: Diagnosis Discharge Diagnosis (1) care and examination of lactating mother: Status: Acute Asessment and Plan: A: Stable PPD1 P: Discharge to home, 6wk PP visit Discharge Plan Disposition Patient Disposition: Home Condition: Good Discharge Details Reason For Visit: transverse lie: external version with induction Admit Date/Time: 08/24/24 19:53 Admit Provider: Maya Siu Attending Provider: Maya Siu Primary Care Provider: Unknown,Unknown Home Meds and New Rx's Prescriptions: No Action cyanocobalamin (vitamin B-12) 1,000 mcg capsule 2,000 mcg PO DAILY PNV [id number] 90 mg iron- 1 mg-200 mg capsule 1 cap PO DAILY Discharge Instructions Stand Alone Forms: BC Instructions, BC Post Vaginal Deliver Activity:: Activity as Tolerated Equipment/Supplies:: No Equipment Needed Diet:: As Tolerated Discharge Orders Discharge Orders: Discharge Order (Routine); Ordered 08/26/24 Ordered By: Elda Alvarenga OB:DS Summary Summary Vaginal Delivery Method: Spontaneaous Episiotomy Description: None Laceration Description: None Laceration Extension: N/A Contraception Discussed Contraception Discussed: Yes Contraceptive Plan: Not planning to use, Infant Gender-Baby A: Male weight: 8 lb 6.394 oz Status at Discharge Functional status at discharge: independent ambulation Overall status at discharge: patient is back to baseline Mental Status: mental status grossly normal Speech and Movement: speech and movement normal Mood: congruent mood Affect: normal affect Quality:SDOH Health Related Social Needs: Health related social needs material hardship(utilitie s) (Z59.12), transportation insecurity (Z59.82), problems related to housing/economic circumstances (Z59.89), problems with daily activities (Z73.9) Exam Physical Exam Vital signs: Temp Pulse Resp BP Pulse Ox 98.1 F 95 H 17 120/65 99 08/26/24 08:00 08/26/24 08:00 08/26/24 08:00 08/26/24 08:00 08/26/24 08:00 Constitutional Constitutional: no acute distress Breast Exam Bilateral: Breast Exam: Normal and Soft Respiratory Exam Respiratory Exam: Normal Cardiovascular Exam Cardiovascular Exam: Normal Abdominal Exam Abdomen: Diastasis (2 fb) Fundal Exam Fundus: Below Umbilicus and Firm Exam Perineum: Intact Neurological Exam Neurological Exam: Normal Psychiatric Exam Psychiatric Exam: Normal PFSH All Active Problems (Updated 08/26/24 @ 10:06 by Elda Alvarenga CNM) care and examination of lactating mother (Acute) Blood product declined (Acute) Hypermobility syndrome (Acute) Low TSH level (Acute) Venous embolism and thrombosis (Acute) superficial right calf High thyroid stimulating hormone (TSH) level (Acute) Pelvic floor dysfunction in female (Acute) Medical History (Updated 08/26/24 @ 10:06 by Elda Alvarenga CNM) Advanced maternal age (AMA) in Transverse lie on 39 week ultrasound Thrombophlebitis during History of hyperparathyroidism Celiac disease Transfusion of blood product declined due to yarsanism reason Family History (Updated 02/08/24 @ 11:01 by Velvet Quintanilla CNM) Father , age 67 Heart disease PR at age 67 Social History Smoking/Tobacco Use Status: Never Smoking risk assessment performed?: Yes Alcohol Intake: former Substance use type: does not use Housing: apartment Do you feel safe at home: Yes Do you feel safe in your relationship?: Yes History History 13 Para 3 Hx # Term Pregnancies 3 Multiple births 0 Hx # Pregnancies 0 Ectopic pregnancies 0 AB induced 0 Hx Number of Living Children 3 AB spontaneous 9 Past Pregnancies Del. Date GA/Weeks # Preg Succ Route Wgt Sex Labor Lgth Anesth esia Location Prov [facility] 01/17/15 43 No Yes vaginal 7 lb 3 oz Female 22 03/25/16 18 No No vaginal 08/11/16 4 03/09/17 4 No No 03/06/18 4 No No 07/07/18 4 09/03/18 09/30/19 40 No Yes vaginal 7 lb 12 oz Female 1.5 hours 06/06/20 6 No No 09/16/21 10 No No 03/06/22 8 No No 03/07/23 41 No Yes vaginal 9 lb 8.9 oz Male 4 hrs Nery mar CNM Delivery Date: 01/17/15 Last Updated by: Velvet Cabral CNM Rebeca, home Delivery Date: 03/25/16 Last Updated by: Velvet Cabral CNM delivered at home unattended Delivery Date: 08/11/16 Last Updated by: Velvet Cabral CNM early SAB, uncertain of date. no complications Delivery Date: 03/09/17 Last Updated by: Velvet Cabral CNM SAB, uncertain of dates, no complications Delivery Date: 03/06/18 Last Updated by: Velvet Cabral CNM SAB uncomplicated Delivery Date: 07/07/18 Last Updated by: Velvet Cabral CNM Uncertain of date, SAB uncomplicated Delivery Date: 09/03/18 Last Updated by: Velvet Cabral CNM SAB uncomplicated Delivery Date: 09/30/19 Last Updated by: Velvet Quintanilla CNM Delivered at home due to covid and home or center births not offered. - attended. Radha Delivery Date: 06/06/20 Last Updated by: Velvet Cabral CNM SAB uncomplicated Delivery Date: 09/16/21 Last Updated by: Velvet Cabral CNM SAB uncomplicated Delivery Date: 03/06/22 Last Updated by: Velvet Cabral CNM SAB uncomplicated Delivery Date: 03/07/23 Last Updated by: Velvet Quintanilla CNM Induced-post dates; established care into practice at 41 +. Spontaneous labor after one dose DS: Data Vitals/I&O Vitals and I&O: Vital Signs Temperature 98.1 F 08/26/24 08:00 Temperature 97.2 F 08/24/24 21:24 Temperature Source Oral 08/26/24 08:00 Pulse 95 H 08/26/24 08:00 Pulse 68 08/24/24 21:24 Pulse Rhythm Regular 08/26/24 08:15 Respiratory Rate 17 08/26/24 08:00 Blood Pressure 120/65 08/26/24 08:00 Blood Pressure 118/73 08/24/24 21:24 Blood Pressure Mean 83 08/26/24 08:00 Pulse Oximetry 99 08/26/24 08:00 Oxygen Delivery Method Room Air 08/24/24 20:20 Oxygen Flow Rate 0 08/24/24 20:20 Intake & Output 08/25/24 08/25/24 08/26/24 11:59 23:59 11:59 Intake Total 504.767 / 850.879 3959.3 / 1047.3 Output Total 600 / 1050 1900 / 1900 Balance -95.233 / -545.233 -852.7 / -852.7 Weight 200 lb 195 lb Intake: IV 504.767 / 483.980 1332.3 / 1047.3 Output: Urine 600 / 1050 1900 / 1900 Other: Urine Color Pale Pale Yellow Yellow Data Completed and Pending Labs on day of discharge: Labs from last 24 hours 08/25/24 14:52 WBC Cancelled RBC Cancelled Hgb Cancelled Hct Cancelled MCV Cancelled MCH Cancelled MCHC Cancelled RDW Cancelled Plt Count Cancelled MPV Cancelled ABO/Rh Cancelled Antibody Screen Cancelled
[2024-08-27 12:28] LABS: Syphilis Serology (RPR) Negative (Negative)
== END 2024-08-26 11:51 | disposition home or self-care (01) | DRG 806 ==
PROVIDERS: Admitting Provider Obstetrics & Gynecology; Visit Provider Obstetrics & Gynecology
DX: O32.2XX0 Maternal care for transverse and oblique lie, not applicable or unspecified (principal); O22.23 Superficial thrombophlebitis in pregnancy, third trimester; Z37.0 Single live birth; M35.7 Hypermobility syndrome; I80.01 Phlebitis and thrombophlebitis of superficial vessels of right lower extremity; Z3A.39 39 weeks gestation of pregnancy; O99.62 Diseases of the digestive system complicating childbirth; O99.284 Endocrine, nutritional and metabolic diseases complicating childbirth; E21.3 Hyperparathyroidism, unspecified; K90.0 Celiac disease
CPT/HCPCS: 59412; 59025; 85027; 86850; 86900; 86901; 84439; 84443; 86592

== ENCOUNTER 2024-12-17 16:13 | Outpatient (CLI) | payer MEDICAID, SELFPAY ==
[2024-12-17 17:26] LABS: TSH (W/Ref FT4) 0.03 uIU/mL (0.36-3.74); Vitamin D 25 Total 34 ng/mL (30-100)
== END 2024-12-17 16:14 | disposition home or self-care (01) ==
LOC: LBO 16:16
PROVIDERS: Advanced Practice Midwife; Visit Provider Obstetrics & Gynecology
DX: R53.83 Other fatigue (principal)
CPT/HCPCS: 36415; 82306; 84439; 84443

== ENCOUNTER 2024-12-17 18:09 | Outpatient (REF) | payer MEDICAID, SELFPAY ==
--- NOTE | 2024-12-17 15:40 | PAPFT_PTH ---
PATIENT: Enedina Oneal LOC: [facility] U#:[id number] AGE/SX: 39/F ROOM: RE12/17/[address]: Ailyn Zarate : 1985 BED: DIS: 12/17/2024 SPEC #: [id number] RECD: 12/17/24 18:12 STATUS: DEANNA REQ #: [id number] BERTHA: 12/17/24 15:[address]: Ailyn Zarate DEPT: [facility], [facility] Cytology RECD BY: Zenaida Alexander ENTERED: 12/17/24 18:15 SP TYPE: PAPFT OTHR DR: Unknown,Unknown Tissues: 1 - CX/ENDOCX FOR PAP SMEARS Procedures: PAP THIN PREP/[facility] Screening HPV DNA PROBE Comments: [id number] (HPV 16 & 18/45)
== END 2024-12-17 18:10 | disposition home or self-care (01) ==
LOC: LBN 18:09
PROVIDERS: Visit Provider Advanced Practice Midwife
DX: Z11.51 Encounter for screening for human papillomavirus (HPV) (principal); Z01.419 Encounter for gynecological examination (general) (routine) without abnormal findings
CPT/HCPCS: 88142; 87624